=== PATIENT | male | born 1950 | race African-American/Black ===

== ENCOUNTER 2020-09-19 17:40 | Inpatient (IN) | payer OTHER, SELFPAY ==
[~2020-09-19 17:40] MED LIST: Iopamidol-370 76% 500 ML 1 ML ONE
--- NOTE | 2020-09-19 17:56 | CT ---
Head CT without contrast 09/19/2020: COMPARISON: 03/30/2009 HISTORY: Right leg dragging, expressive and receptive aphasia, stroke symptoms TECHNIQUE: Axial CT imaging at 5 mm intervals from vertex through skull base without contrast FINDINGS: The visualized paranasal sinuses and mastoid air cells are well-aerated. No displaced angela rial fracture. There is periventricular and deep white matter hypodensity adjacent to the atrium of the left lateral ventricle. There is mild encephalomalacia within the posterior lateral aspect of the temporal lobe on the left on axial image 15. Findings suggest encephalomalacia associated with prior infarction. No intracranial hemorrhage, midline shift, or mass effect. IMPRESSION: Findings suggesting prior left MCA infarction. No intracranial hemorrhage. Dr. Rene made aware at 5:54 PM 09/19/2020
[2020-09-19 18:23] LABS: #Eosinphils 0.1 thou/uL (0.0-0.7); #Lymphocytes 2.1 thou/uL (1.20-3.40); #Monocytes 0.6 thou/uL (0.11-0.59); #Neutrophils 7.5 thou/uL (1.40-6.50); %Basophils 0.3 % (0.0-1.0); %Eosinophils 0.5 % (0.0-10.0); %Lymphocytes 20.3 % (21.0-51.0); %Monocytes 6.1 % (0.0-10.0); %Neutrophils 72.8 % (42.0-75.0); Hemoglobin 16.1 g/dL (14.0-18.0); Mean Corpuscular HGB CONC 33.4 g/dL (32.0-36.0); Mean Corpuscular Hemoglobin 29.4 pg (27.0-31.0); Mean Platelet Volume 8.6 fL (7.4-10.4); Platelet Count 154 thou/uL (130-400); RBC Distribution Width 12.6 % (11.5-14.5); Red Blood Cell (RBC) Count 5.49 mill/uL (4.70-6.10); White Blood Cell (WBC) Count 10.4 thou/uL (4.8-10.8)
[2020-09-19 18:47] LABS: ALT (SGPT) 37 U/L (8-55); AST (SGOT) 26 U/L (5-34); Albumin 3.8 g/dL (3.4-4.8); Alkaline Phosphatase 37 U/L (40-110); Anion Gap 19 mmol/L (10-20); BUN (Urea Nitrogen) 29 mg/dL (8.4-25.7); Bilirubin, Total 0.3 mg/dL (0.2-1.2); Calc. Creatinine Clearance 0 mL/min (70-130); Calcium 8.6 mg/dL (7.8-10.44); Carbon Dioxide 18 mmol/L (23-31); Chloride 104 mmol/L (98-107); Glucose 209 mg/dL (80-115); Potassium 5.5 mmol/L (3.5-5.1); Protein, Total 6.8 g/dL (5.8-8.1); Sodium 135 mmol/L (136-145)
[2020-09-19 18:49] LABS: INR-International Normal Ratio 1.2; Prothrombin Time 15.3 sec (12.0-14.7)
[2020-09-19 18:50] LABS: PTT 22.4 sec (22.9-36.1)
--- NOTE | 2020-09-19 19:08 | RAD ---
CHEST ONE VIEW: 09/19/20 INDICATION: Level II stroke alert. COMPARISON: Prior exam dated 07/04/13. FINDINGS: The lungs are clear. Heart size is normal. There is a left reversed total shoulder replacement that i s new from the prior exam. There is mild degenerative change. IMPRESSION: No acute cardiopulmonary abnormality. POS: BH
--- NOTE | 2020-09-19 19:20 | PDOC.HHP ---
Hospitalist HPI - History of Present Illness CVA History of Present Illness: PCP: GUNNAR The patient is a 70-year-old male with a past medical history significant for CVA (2009), atrial fibrillation (on Pradaxa), HTN, DM 2, HLD and Alzheimer's dementia that presents to the emergency department via EMS for the above complaint. Per the patient's spouse, the patient was last seen normal at approximately noon this afternoon. After grocery shopping, she came home and noticed her was having difficulty helping her take the groceries into the home. She reported that he needed prompting and seemed confused. She also says the right side of his face looked "twisted". He had difficulty speaking. She noticed that he was dragging his right leg when ambulating. For these reason she called EMS. Upon arrival, the patient was noted to be A&O x1 with right lower extremity weakness and aphasia. Blood glucose 226 with irregular heart rate of 90 beats per minute. The patient was hypertensive with a blood pressure 136/100. Patient was taken to the hospital for further evaluation. The patient and his spouse deny any recent trauma or fall. Denies any recent fever or illness. Denies any recent change to his medications. Denies any complaints of chest pain, heart palpitations or lightheadedness. Denies any recent cough, wheezing or shortness of breath. Denies any abdominal pain, nausea, vomiting, diarrhea. Denies any dysuria or hematuria. ED Course: VITAL SIGNS Rias Sep 19, 2020 18:10 MORE Velasquez Kelsey BP: 142/82, Pulse: 96, Resp: 20 (Non-Labored), Temp: 98.6 (Oral), Pain: 0, O2 sat: 98 on (Room Air), Time: 09/19/2020 18:10. Medications: aspirin oral 325 mg Oral Ordered 19:12 09/19/2020 Hospitalist ROS - Review of Systems All other systems reviewed; all pertinent +/- noted in HPI/Subj - Medication Medications: Pradaxa [facility] Sep 19, 2020 18:17 MORE Velasquez Kelsey capsule : Strength - 150 mg : ORAL Patient Dose: 1 cap(s) once a day. QUEtiapine [facility] Sep 19, 2020 18:18 MORE Velasquez Kelsey tablet : Strength - 100 mg : ORAL Patient Dose: 0.5 tab(s) once a day. dilTIAZem oral [facility] Sep 19, 2020 18:18 MORE Velasquez Kelsey capsule,extended release 24 hr : Strength - 180 mg : ORAL Patient Dose: 1 cap(s) once a day. methocarbamol oral [facility] Sep 19, 2020 18:18 MORE Velasquez Kelsey tablet : Strength - 500 mg : ORAL Patient Dose: 2 tab(s) 3 times a day. ezetimibe [facility] Sep 19, 2020 18:19 MORE Velasquez Kelsey tablet : Strength - 10 mg : ORAL Patient Dose: 1 tab(s) once a day. donepezil [facility] Sep 19, 2020 18:19 MORE Velasquez Kelsey tablet : Strength - 10 mg : ORAL Patient Dose: 0.5 tab(s) once a day. glimepiride [facility] Sep 19, 2020 18:20 MORE Velasquez Kelsey tablet : Strength - 4 mg : ORAL Patient Dose: 2 tab(s) once a day. sildenafil [facility] Sep 19, 2020 18:21 MORE Velasquez Kelsey tablet : Strength - 100 mg : ORAL Patient Dose: 1 tab(s) As Needed. metoprolol tartrate oral [facility] Sep 19, 2020 18:22 MORE Velasquez Kelsey tablet : Strength - 50 mg : ORAL Patient Dose: 0.5 tab(s) 2 times a day. Allergies: Hospitalist History - Past Medical History Source: patient, family, RN notes reviewed Cardiac: reports: AFIB (On Pradaxa), HTN, Hyperlipidemia BUSINESS SERVICES REPRESENTATIVE: reports: CVA ((2009)), Dementia (Issues with short and long-term memory. Performs most ADLs, needs assistance with bathing.) Renal/: reports: Chronic renal insuff (CKD 3), Benign prostatic enlarg. Endocrine: reports: Diabetes (Type II [id number]) - Past Surgical History Other Surgical History: Poor historian. - Family History Family History: reports: cancer (Mother). denies: cerebrovascular accident - Social History Smoking Status: Never smoker Alcohol: reports: None Drugs: reports: none Living Situation: With Family Occupation: Does not work Activity level: uses cane/walker - Exam General Appearance: NAD, awake alert. negative: ill appearing Eye: PERRL, anicteric sclera ENT: normocephalic atraumatic, moist mucosa Neck: supple, symmetric Heart: no murmur, no gallops, no rubs, normal peripheral pulses, irregular Respiratory: CTAB, no wheezes, no rales, no ronchi, normal chest expansion, no tachypnea Gastrointestinal: soft, non-tender, non-distended, normal bowel sounds, no bruit, no guarding, no rigidity Extremities: no cyanosis, no edema Skin: no rashes Neurological - other findings: NIH 2, right nasolabial fold, expressive aphasia, LOC baseline per spouse Musculoskeletal: normal tone, normal strength Psychiatric: normal affect, oriented to person Psychiatric - other findings: Alert Hospitalist Results - Labs Result Diagrams: 09/19/20 17:52 09/19/20 18:08 Lab results: WBC 10.4 thou/uL (4.8-10.8) 09/19/20 17:52 Hgb 16.1 g/dL (14.0-18.0) 09/19/20 17:52 Hct 48.3 % (42.0-52.0) 09/19/20 17:52 MCV 88.0 fL (78.0-98.0) 09/19/20 17:52 Plt Count 154 thou/uL (130-400) 09/19/20 17:52 Neutrophils % 72.8 % (42.0-75.0) 09/19/20 17:52 Sodium 135 mmol/L (136-145) L 09/19/20 18:08 Potassium 5.5 mmol/L (3.5-5.1) H 09/19/20 18:08 Chloride 104 mmol/L (98-107) 09/19/20 18:08 Carbon Dioxide 18 mmol/L (23-31) L 09/19/20 18:08 BUN 29 mg/dL (8.4-25.7) H 09/19/20 18:08 Creatinine 1.78 mg/dL (0.7-1.3) H 09/19/20 18:08 Glucose 209 mg/dL (80-115) H 09/19/20 18:08 Calcium 8.6 mg/dL (7.8-10.44) 09/19/20 18:08 Total Bilirubin 0.3 mg/dL (0.2-1.2) 09/19/20 18:08 AST 26 U/L (5-34) 09/19/20 18:08 ALT 37 U/L (8-55) 09/19/20 18:08 Alkaline Phosphatase 37 U/L (40-110) L 09/19/20 18:08 Serum Total Protein 6.8 g/dL (5.8-8.1) 09/19/20 18:08 Albumin 3.8 g/dL (3.4-4.8) 09/19/20 18:08 - EKG Interpretation EKG: Atrial fibrillation, rate controlled. - Radiology Interpretation CT scan - head Status: report reviewed by me Additional Comment: IMPRESSION: Findings suggesting prior left MCA infarction. No intracranial hemorrhage. Other Status: report reviewed by me Additional Comment: CTA head and neck: IMPRESSION: Occlusion of a left M2 branch within the sylvian fissure. Chest x-ray Status: report reviewed by me Additional Comment: No acute process. Hospitalist H&P A/P - Problem (1) CVA (cerebral vascular accident) Code(s): I63.9 - CEREBRAL INFARCTION, UNSPECIFIED Status: Acute (2) Hyperkalemia Code(s): E87.5 - HYPERKALEMIA Status: Acute (3) Atrial fibrillation Code(s): I48.91 - UNSPECIFIED ATRIAL FIBRILLATION Status: Acute (4) DM2 (diabetes mellitus, type 2) Status: Chronic (5) HTN (hypertension) Code(s): I10 - ESSENTIAL (PRIMARY) HYPERTENSION Status: Chronic (6) HLD (hyperlipidemia) Code(s): E78.5 - HYPERLIPIDEMIA, UNSPECIFIED Status: Chronic (7) Alzheimer's dementia Code(s): G30.9 - ALZHEIMER'S DISEASE, UNSPECIFIED; F02.80 - DEMENTIA IN OTH DISEASES CLASSD ELSWHR W/O BEHAVRL DISTURB Status: Chronic (8) CKD (chronic kidney disease), stage III Code(s): N18.30 - CHRONIC KIDNEY DISEASE, STAGE 3 UNSPECIFIED Status: Chronic (9) BPH (benign prostatic hyperplasia) Code(s): N40.0 - BENIGN PROSTATIC HYPERPLASIA WITHOUT LOWER URINRY TRACT SYMP Status: Chronic - Plan Plan: 70/M with PMH CVA, A. fib, HTN, DM 2, HLD presents for right facial droop, aphasia and right lower extremity weakness. Admit to stroke unit, inpatient status. Expected length of stay less than 2 midnights. Presented tachycardic, NL BP, RR, SPO2, afebrile. NIH 2. EKG atrial fibrillation rate controlled. CT/CTA positive for left CVA. Potassium 5.5, BUN 29, creatinine 1.78 Glucose 209 #CVA Presented NIH 2, not TPA candidate. Order MRI, echocardiogram. Consult stroke team and neurology. Check FLP, TSH, mag level. Continue baby aspirin. Restart home dose Pradaxa. Permissive hypertension. Neurochecks. #Hyperkalemia Mild. Presented K5.5. Check mag level. Recheck in a.m. #Atrial fibrillation Chronic, rate controlled. Takes metoprolol, Cardizem, Pradaxa at home. Restart metoprolol, Cardizem Pradaxa. #DM2 Presented BG 209 Takes glimepiride at home. Hold glimepiride Start moderate ISS. Accu-Cheks AC at bedtime. Check hemoglobin A1c. #HTN Presented hypertensive. Takes metoprolol and Cardizem at home. Restart home dose metoprolol and Cardizem as blood pressure permits. #HLD Check FLP. Start high intensity statin. #Alzheimer's dementia Difficulty short and long-term memory. Lives with spouse. Needs assistance with bathing. Patient able to perform most ADLs. Takes donepezil at home. Restart donepezil #CKD 3 Presented BUN 29, creatinine 1.78, GFR 38. No comparison for baseline. Recheck BMP in a.m. #BPH Takes sildenafil at home. Restart sildenafil. SCDs for DVT prophylaxis. No pharmacological DVT prophylaxis. Pepcid for GI prophylaxis. Full code. Contact is his spouse Yazmin at [phone]. Discussed the case with Dr. Causey.
[2020-09-19] MEDS ORDERED: Labetalol HCl 100 MG/20 ML VIAL SLOW IVP PRN (19:46)
[2020-09-19] MEDS ORDERED: hydrALAZINE 20 MG/ML VIAL SLOW IVP PRN (19:46)
[2020-09-19] MEDS ORDERED: Aspirin 325 MG TAB ONE (19:47)
[2020-09-19] MEDS ORDERED: Ondansetron ODT 4 MG TAB PO PRN (19:48)
[2020-09-19] MEDS ORDERED: Ondansetron PF 4 MG/2 ML Vial IVP PRN (19:48)
[2020-09-19] MEDS ORDERED: Acetaminophen 325 MG TAB PO PRN (19:48)
[2020-09-19] MEDS ORDERED: Dextrose 50% Abboject 50 ML SYRINGE SLOW IVP PRN (19:52)
[2020-09-19] MEDS ORDERED: Dextrose 5% in Water 1,000 ML IV PRN (19:52)
[2020-09-19 21:47] VITALS: BMI 23.2
[2020-09-19] MEDS: Atorvastatin Calcium 40 MG TAB PO SCH (21:56)
[2020-09-19] MEDS: HumaLOG 300 UNITS/3 ML VIAL SC PRN (22:04)
[2020-09-20 05:04] LABS: #Eosinphils 0.1 thou/uL (0.0-0.7); #Lymphocytes 2.1 thou/uL (1.20-3.40); #Monocytes 0.5 thou/uL (0.11-0.59); #Neutrophils 6.5 thou/uL (1.40-6.50); %Eosinophils 0.9 % (0.0-10.0); %Lymphocytes 23.4 % (21.0-51.0); %Monocytes 5.1 % (0.0-10.0); %Neutrophils 70.6 % (42.0-75.0); Mean Corpuscular HGB CONC 33.3 g/dL (32.0-36.0); Mean Corpuscular Hemoglobin 28.4 pg (27.0-31.0); Mean Corpuscular Volume 85.4 fL (78.0-98.0); Mean Platelet Volume 8.1 fL (7.4-10.4); Platelet Count 159 thou/uL (130-400); RBC Distribution Width 12.6 % (11.5-14.5); Red Blood Cell (RBC) Count 5.28 mill/uL (4.70-6.10); White Blood Cell (WBC) Count 9.2 thou/uL (4.8-10.8)
[2020-09-20 05:15] LABS: Hemoglobin A1c 8.9 % (4.0-6.0)
[2020-09-20 05:21] LABS: Anion Gap 13 mmol/L (10-20); BUN (Urea Nitrogen) 20 mg/dL (8.4-25.7); Calc. Creatinine Clearance 63 mL/min (70-130); Calcium 8.3 mg/dL (7.8-10.44); Carbon Dioxide 21 mmol/L (23-31); Cardiac Risk 2.1 (Less than 4.5); Chloride 105 mmol/L (98-107); Cholesterol 103 mg/dl (< 200 Desired); Glucose 266 mg/dL (80-115); HDL Cholesterol 48 mg/dL (>60 Neg Risk); LDL Cholesterol, Calculated 46 mg/dL; Magnesium 2.1 mg/dL (1.6-2.6); Potassium 4.5 mmol/L (3.5-5.1); Sodium 134 mmol/L (136-145); Triglycerides 43 mg/dL (Less than 150)
[2020-09-20] MEDS: HumaLOG 300 UNITS/3 ML VIAL SC PRN ×4 (05:43→20:50)
[2020-09-20] MEDS ORDERED: Methocarbamol 500 MG TAB PO PRN (08:38)
[2020-09-20] MEDS ORDERED: SILDENAFIL CITRATE 100 MG PO PRN (08:40)
[2020-09-20] MEDS ORDERED: Sildenafil Citrate 20 MG TAB PO SCH (09:00)
[2020-09-20] MEDS ORDERED: Metoprolol Tartrate 50 MG TAB PO SCH (09:00)
[2020-09-20] MEDS ORDERED: Donepezil HCl 10 MG TAB PO SCH (09:00)
[2020-09-20] MEDS ORDERED: MAGNESIUM OXIDE 400 MG PO SCH (09:00)
[2020-09-20] MEDS ORDERED: Cholecalciferol (Vitamin D3) 400 UNITS TAB PO SCH (09:00)
[2020-09-20] MEDS ORDERED: Sildenafil Citrate 20 MG TAB PO PRN (09:00)
[2020-09-20] MEDS ORDERED: DILTIAZEM HCL 180 MG PO SCH (09:00)
[2020-09-20] MEDS: Aspirin 81 mg Enteric Coated Tablet PO SCH (09:38)
[2020-09-20] MEDS: Magnesium Oxide 400 MG TAB PO SCH (09:38)
[2020-09-20] MEDS: Famotidine 20 MG TAB PO SCH (09:38)
[2020-09-20] MEDS: Donepezil HCl 5 MG TAB PO SCH (09:38)
[2020-09-20] MEDS: Metoprolol Tartrate 25 MG TAB PO SCH ×2 (09:39→20:39)
[2020-09-20] MEDS: Cholecalciferol (Vitamin D3) 400 UNITS TAB PO SCH (09:39)
[2020-09-20] MEDS: Ezetimibe 10 MG TAB PO SCH (09:39)
--- NOTE | 2020-09-20 12:01 | CON ---
DATE OF CONSULTATION: 09/20/2020 CONSULTING PHYSICIAN: Hospitalist Service. IMPRESSION: 1. Left middle cerebral artery stroke with mild expressive aphasia. 2. Atrial fibrillation with ongoing Pradaxa treatment. PLAN: I agree with baby aspirin in addition. HISTORY OF PRESENT ILLNESS: Mr. Andrew is a 70-year-old male with a past history of atrial fibrillation, stroke, and some dementia. He presented with a change in his ability to speak. His CT angiogram showed a distal occlusion in the left MCA territory. His blood pressure is 136/100. He was without any other complaints. He does not report any headache, nausea, vomiting, dizziness, chest pain, or shortness of breath. PAST MEDICAL HISTORY: BPH, diabetes. SOCIAL HISTORY: No tobacco or alcohol use. FAMILY HISTORY: Positive for cancer and stroke. REVIEW OF SYSTEMS: A 10-system review of systems is otherwise negative. PHYSICAL EXAMINATION: GENERAL: He is a well-nourished elderly gentleman, lying in bed, in no distress. VITAL SIGNS: Blood pressure 135/102, pulse 100, respirations 20, and temperature 98.3. HEENT: Pupils equal and reactive. Conjunctivae clear. Oropharynx clear. NECK: Supple. No lymphadenopathy. ABDOMEN: Soft and nontender. SKIN: Clear. EXTREMITIES: No cyanosis or edema. NEUROLOGIC: He was alert and appropriate. He follows commands appropriately. He had word-finding difficulty. There was no facial asymmetry appreciated. 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 He had good antigravity strength in both legs. Sensation was grossly intact. Plantar response was upgoing on the right and downgoing on the left. Gait was not tested. SUMMARY: This is a 70-year-old man with a history of atrial fibrillation with prior anticoagulation. He presented with a probable thrombosis. I agree with the addition of aspirin, appears to be improving based on reports. He could be discharged at your discretion. Job ID: [id number]
--- NOTE | 2020-09-20 13:42 | MRI ---
MRI BRAIN WITHOUT CONTRAST: HISTORY: Right leg weakness and dragging, expressive and receptive aphasia. CORRELATION: CT scan from 09/19/2020. FINDINGS: There is restricted diffusion in the left posterior MCA territory.. There are foci of T2 prolongation in the periventricular white matter, consistent with chronic small vessel ischemic disease. The ventricular size is appropriate and the basilar cisterns are patent. No evidence of hemorrhage, midline shift or abnormal extra-axial fluid collections is seen. The visualized paranasal sinuses and mastoid air cells are well-aerated. IMPRESSION: Acute left posterior MCA infarction
--- NOTE | 2020-09-20 16:28 | CON ---
DATE OF CONSULTATION: REASON FOR CONSULTATION: Atrial fibrillation, recent CVA. PRIMARY TESTING MACHINE OPERATOR: Maxwell Martins. HISTORY OF PRESENT ILLNESS: Mr. Andrew is a pleasant 70-year-old gentleman, who recently had slurred speech. He has had some recovery, although still noted. He does have a history of atrial fibrillation over last 5 to 6 years. He states he has had cardioversion performed in the past that failed. He initially was on Coumadin and is now on Pradaxa. He has been on Pradaxa over the last 6 months. He states he has been diligent about taking his Pradaxa on a daily basis twice a day. He does not complain of palpitations, heart fluttering, chest pain, or other associated symptoms. His most recent echo did suggest normal LVEF. MRI suggested acute left posterior MCA infarction. PAST MEDICAL HISTORY: Diabetes mellitus, atrial fibrillation, BPH. FAMILY HISTORY: Negative for CAD. SOCIAL HISTORY: No current tobacco or alcohol use. HOME MEDICATIONS: Include; 1. Zetia 10 daily. 2. Vitamin D3. 3. Seroquel 50 mg at bedtime. 4. Pradaxa 150 b.i.d. 5. Cardizem 180 daily. 6. Viagra 100 daily. 7. Magnesium. 8. Metoprolol 25 b.i.d. 9. Amaryl 8 mg q.a.m. 10. Aricept 5 mg daily. REVIEW OF SYSTEMS: Ten-point review of systems is reviewed and as above, otherwise negative. OBJECTIVE: GENERAL: Patient is a pleasant male, who is in no acute distress. The patient appears their stated age. VITAL SIGNS: Blood pressure 106/71, pulse 77, temperature 98.2. NEUROLOGIC: The patient is alert and oriented x3 with no focal neurologic deficits. HEENT: Sclerae without icterus. Mouth has moist mucous membranes with normal pallor. NECK: No JVD. Carotid upstroke brisk. No bruits bilaterally. LUNGS: Clear to auscultation with unlabored respirations. BACK: No scoliosis or kyphosis. CARDIAC: Irregularly irregular. ABDOMEN: Soft, nontender, nondistended. No peritoneal signs present. No hepatosplenomegaly. No abnormal striae. EXTREMITIES: 2+ femoral and 2+ dorsalis pedis pulses. No cyanosis, clubbing, or edema. SKIN: No gross abnormalities. PERTINENT LABORATORY DATA: Hemoglobin 15, hematocrit 45. Creatinine 1.12, glucose 266. IMPRESSION: 1. Atrial fibrillation, on anticoagulation therapy. 2. Recent stroke. RECOMMENDATIONS: Mr. Andrew's etiology to cerebrovascular accident maybe multiple. He states he has been compliant, which makes that less likely. He may also be a Pradaxa failure, which does happen close to 1% of the time. I discussed changing to Xarelto or Eliquis. he is not eligible. Therefore, we would agree with adding aspirin to Pradaxa. Heart rate appears stable on current medical regime. We will follow up in a.m. and if stable, we will sign off. He would like to follow up with us as an outpatient. Job ID: [id number]
[2020-09-20] MEDS ORDERED: Dabigatran 150 mg Capsule PO SCH ×2 (17:00→21:00)
--- NOTE | 2020-09-20 20:22 | PDOC.HOSPP ---
- Subjective Encounter Date: 09/20/20 Encounter Time: 19:00 Subjective: Patient seen and examined for acute CVA. Right-sided weakness and speech gradually improving. Denies any double vision, blurring of vision or new deficit. No chest pain or palpitations reported. - Objective Vital Signs & Weight: Vital Signs (12 hours) Temp Pulse Pulse Pulse Resp BP BP 09/20/20 15:22 98.5 F 94 18 09/20/20 11:09 52 L 96 118/90 106/71 09/20/20 11:05 98.2 F 77 16 09/20/20 09:38 09/20/20 09:03 100 135/102 H BP Pulse Ox 09/20/20 15:22 128/83 99 09/20/20 11:09 09/20/20 11:05 118/90 100 09/20/20 09:38 100 09/20/20 09:03 Weight Admit Weight 157 lb 3.2 oz Weight 157 lb 3.2 oz I&O: 09/19/20 09/20/20 09/21/20 06:59 06:59 06:59 Intake Total 500 2580 Balance 500 2580 Result Diagrams: 09/20/20 04:39 09/20/20 04:39 Additional Labs: Accuchecks 09/20/20 09/20/20 09/20/20 16:16 10:40 05:22 POC Glucose 333 H 217 H 215 H 09/19/20 21:59 POC Glucose 272 H Radiology Reviewed by me: Yes (CT angiogram of the brain reviewed) EKG Reviewed by me: Yes (Atrial fibrillation on telemetry) Hospitalist ROS - Review of Systems Cardiovascular: denies: chest pain, palpitations, orthopnea, paroxysmal noc. dyspnea, edema, light headedness, other Gastrointestinal: denies: nausea, vomiting, abdominal pain, diarrhea, constipation, melena, hematochezia, other - Medication Medications: Active Medications Generic Name Dose Route Start Last Admin Trade Name Freq PRN Reason Stop Dose Admin Aspirin 81 mg 09/20/20 09:00 09/20/20 09:38 Aspirin 81 Mg Enteric Coated Tablet PO 81 mg DAILY DONYA Administration Atorvastatin Calcium 40 mg 09/19/20 21:00 09/19/20 21:56 Atorvastatin Calcium 40 Mg Tab PO 40 mg HS DONYA Administration Cholecalciferol 800 units 09/20/20 09:00 09/20/20 09:39 Cholecalciferol (Vitamin D3) 400 Units Tab PO 800 units DAILY DONYA Administration Diltiazem HCl 180 mg 09/20/20 09:00 09/20/20 09:38 Diltiazem Hcl Cd 180 Mg Capsule PO 180 mg DAILY DONYA Administration Donepezil HCl 5 mg 09/20/20 09:00 09/20/20 09:38 Donepezil Hcl 5 Mg Tab PO 5 mg DAILY DONYA Administration Ezetimibe 10 mg 09/20/20 09:00 09/20/20 09:39 Ezetimibe 10 Mg Tab PO 10 mg DAILY DONYA Administration Famotidine 20 mg 09/20/20 09:00 09/20/20 09:38 Famotidine 20 Mg Tab PO 20 mg 0900 DONYA Administration Insulin Human Lispro 0 units 09/19/20 19:52 09/20/20 17:27 Humalog 300 Units/3 Ml Vial SC 8 unit .MODERATE SLIDING SC PRN Administration Moderate Correctional Scale Insulin Human Lispro 0 units 09/19/20 19:52 09/19/20 22:04 Humalog 300 Units/3 Ml Vial SC 3 unit .BEDTIME SLIDING SC PRN Administration Bedtime Correctional Scale Magnesium Oxide 400 mg 09/20/20 09:00 09/20/20 09:38 Magnesium Oxide 400 Mg Tab PO 400 mg DAILY DONYA Administration Metoprolol Tartrate 25 mg 09/20/20 09:00 09/20/20 09:39 Metoprolol Tartrate 25 Mg Tab PO 25 mg BID DONYA Administration - Exam General Appearance: NAD Neck: supple, no JVD Heart: no gallops, no rubs, normal peripheral pulses, irregular Respiratory: no wheezes, no rales, no ronchi, normal chest expansion Gastrointestinal: soft, non-tender, non-distended, normal bowel sounds Extremities: no cyanosis, no clubbing, no edema Neurological: no new deficit, speech deficit Psychiatric: normal affect, A&O x 3 Hosp A/P - Plan Acute left posterior MCA CVAsuspected embolic Chronic atrial fibrillation on Pradaxa Speech deficit due to above Diabetes mellitus type 2 Benign prostatic hypertrophy CKD stage II Hyponatremia Hyperkalemiaresolved Dementia Hyperlipidemia Plan: Case discussed with neurology. Neurology recommended addition of aspirin to home dose of Pradaxa. Continue Cardizem, statins with other medications as above. Physical therapy/Occupational Therapy/speech therapy. Consult caser in for discharge planning. Cardiology/neurology input appreciated.
[2020-09-20] MEDS: Atorvastatin Calcium 40 MG TAB PO SCH (20:39)
[2020-09-21] MEDS: HumaLOG 300 UNITS/3 ML VIAL SC PRN ×3 (05:54→16:42)
[2020-09-21] MEDS: Dabigatran 150 mg Capsule PO SCH ×2 (08:54→20:15)
[2020-09-21] MEDS: Cholecalciferol (Vitamin D3) 400 UNITS TAB PO SCH (08:54)
[2020-09-21] MEDS: Glimepiride 4 MG TAB PO SCH (08:54)
[2020-09-21] MEDS: Aspirin 81 mg Enteric Coated Tablet PO SCH (08:54)
[2020-09-21] MEDS: Metoprolol Tartrate 25 MG TAB PO SCH ×2 (08:55→20:15)
[2020-09-21] MEDS: Famotidine 20 MG TAB PO SCH (08:55)
[2020-09-21] MEDS: Donepezil HCl 5 MG TAB PO SCH (08:55)
[2020-09-21] MEDS: Ezetimibe 10 MG TAB PO SCH (08:55)
[2020-09-21] MEDS: Magnesium Oxide 400 MG TAB PO SCH (08:55)
--- NOTE | 2020-09-21 12:56 | PDOC.CPN ---
- Subjective Date: 09/21/20 Time: 13:10 Interval history: No overnight events. - Review of Systems General: denies: fever/chills, weight/appetite/sleep changes, night sweats, fatigue Respiratory: denies: cough, congestion, shortness of breath, exercise intolerance Cardiovascular: denies: chest pain, palpitation, edema, paroxysmal nocturnal dyspnea, orthopnea Gastrointestinal: denies: nausea, vomiting, diarrhea, constipation, abd pain, GI bleeding Musculoskeletal: denies: pain, tenderness, stiffness, swelling, arthritis/arthralgias Neurological: denies: numbness, syncope, seizure, weakness - Objective Allergies/Adverse Reactions: Allergies Allergy/AdvReac Type Severity Reaction Status Date / Time No Known Drug Allergies Allergy Verified 09/19/20 21:43 Visit Medications: Current Medications Acetaminophen (Acetaminophen 325 Mg Tab) 650 mg PO Q4H PRN PRN Reason: Headache/Fever/Mild Pain (1-3) Last Admin: 09/20/20 20:40 Dose: 650 mg Documented by: Aspirin (Aspirin 81 Mg Enteric Coated Tablet) 81 mg PO DAILY [facility] Last Admin: 09/21/20 08:54 Dose: 81 mg Documented by: Atorvastatin Calcium (Atorvastatin Calcium 40 Mg Tab) 40 mg PO HS [facility] Last Admin: 09/20/20 20:39 Dose: 40 mg Documented by: Cholecalciferol (Cholecalciferol (Vitamin D3) 400 Units Tab) 800 units PO DAILY [facility] Last Admin: 09/21/20 08:54 Dose: 800 units Documented by: Dabigatran (Dabigatran 150 Mg Capsule) 150 mg PO BID [facility] Last Admin: 09/21/20 08:54 Dose: 150 mg Documented by: Dextrose/Water (Dextrose 50% Abboject 50 Ml Syringe) 25 gm SLOW IVP PRN PRN PRN Reason: Hypoglycemia Diltiazem HCl (Diltiazem Hcl Cd 180 Mg Capsule) 180 mg PO DAILY [facility] Last Admin: 09/21/20 08:54 Dose: 180 mg Documented by: Donepezil HCl (Donepezil Hcl 5 Mg Tab) 5 mg PO DAILY [facility] Last Admin: 09/21/20 08:55 Dose: 5 mg Documented by: Ezetimibe (Ezetimibe 10 Mg Tab) 10 mg PO DAILY [facility] Last Admin: 09/21/20 08:55 Dose: 10 mg Documented by: Famotidine (Famotidine 20 Mg Tab) 20 mg PO 0900 [facility] Last Admin: 09/21/20 08:55 Dose: 20 mg Documented by: Glimepiride (Glimepiride 4 Mg Tab) 8 mg PO QAM-WM [facility] Last Admin: 09/21/20 08:54 Dose: 8 mg Documented by: Glucagon (Glucagon 1 Mg/Ml Vial) 1 mg IM PRN PRN PRN Reason: Hypoglycemia Hydralazine HCl (Hydralazine 20 Mg/Ml Vial) 10 mg SLOW IVP Q4H PRN PRN Reason: BP > 220/110 Dextrose/Water (D5w) 1,000 mls @ 0 mls/hr IV .Q0M PRN PRN Reason: Hypoglycemia Insulin Human Lispro (Humalog 300 Units/3 Ml Vial) 0 units SC .MODERATE SLIDING SC PRN PRN Reason: Moderate Correctional Scale Last Admin: 09/21/20 11:08 Dose: 4 unit Documented by: Insulin Human Lispro (Humalog 300 Units/3 Ml Vial) 0 units SC .BEDTIME SLIDING SC PRN PRN Reason: Bedtime Correctional Scale Last Admin: 09/20/20 20:50 Dose: 3 unit Documented by: Labetalol HCl (Labetalol Hcl 100 Mg/20 Ml Vial) 20 mg SLOW IVP Q1H PRN PRN Reason: BP > 220/110 Magnesium Oxide (Magnesium Oxide 400 Mg Tab) 400 mg PO DAILY [facility] Last Admin: 09/21/20 08:55 Dose: 400 mg Documented by: Methocarbamol (Methocarbamol 500 Mg Tab) 1,000 mg PO TID PRN PRN Reason: Muscle Spasm Metoprolol Tartrate (Metoprolol Tartrate 25 Mg Tab) 25 mg PO BID [facility] Last Admin: 09/21/20 08:55 Dose: 25 mg Documented by: Ondansetron HCl (Ondansetron Pf 4 Mg/2 Ml Vial) 4 mg IVP Q6H PRN PRN Reason: Nausea/Vomiting Ondansetron HCl (Ondansetron Odt 4 Mg Tab) 4 mg PO Q6H PRN PRN Reason: Nausea/Vomiting Quetiapine Fumarate (Quetiapine Fumarate 100 Mg Tab) 50 mg PO HS [facility] Last Admin: 09/20/20 20:39 Dose: 50 mg Documented by: Sodium Chloride (Flush - Normal Saline 10 Ml Syringe) 10 ml IVF PRN PRN PRN Reason: Saline Flush Vital Signs & Weight: Vital Signs Temp Pulse Resp BP Pulse Ox 09/21/20 11:31 98.3 F 60 16 128/62 100 09/21/20 07:40 100 09/21/20 07:23 98.0 F 92 16 128/80 99 09/21/20 03:43 98.1 F 55 L 20 118/86 100 Admit Weight 157 lb 3.2 oz Weight 156 lb 3.2 oz - Physical Exam General: alert & oriented x3, appears well, no apparent distress HEENT: mucus membranes moist Neck: supple neck Cardiac: other (IRR IRR) Lungs: clear to auscultation Abdomen: soft, non-tender - Labs Result Diagrams: 09/20/20 04:39 09/20/20 04:39 Troponin/CKMB Troponin I 0.016 ng/mL (< 0.028) 09/19/20 18:08 - Assessment/Plan Assessment/Plan: 1. AF 2. CVA Continue Pradaxa and add ASA. Rate-controlled. Cleared for discharge from my perspective. RG 09/21 Pt seen and examined. Agree with the above Pt with decrease EF noted over the last 2 m Discussed ango with pt R/B discussed Plan on angio on Wednesday Continue dieresis and BP management
--- NOTE | 2020-09-21 14:50 | EKG ---
Test Reason : Blood Pressure : / mmHG Vent. Rate : 099 BPM Atrial Rate : 100 BPM P-R Int : 000 ms QRS Dur : 086 ms QT Int : 350 ms P-R-T Axes : 000 -32 062 degrees QTc Int : 449 ms Atrial fibrillation Left axis deviation Moderate voltage criteria for LVH, may be normal variant Nonspecific T wave abnormality , probably digitalis effect Abnormal ECG Confirmed by KRYS HOROWITZ M.D. ([id number]), research editor PIPO BEARD ([id number]) on 09/21/2020 2:50:22 PM Referred By: Confirmed By:KRYS HOROWITZ M.D.
--- NOTE | 2020-09-21 18:01 | PDOC.HOSPP ---
- Subjective Encounter Date: 09/21/20 Encounter Time: 14:00 Subjective: Patient seen and examined for acute CVA. Denies any focal deficit. Right-sided weakness and speech improving. Denies any new focal deficit. - Objective Vital Signs & Weight: Vital Signs (12 hours) Temp Pulse Resp BP Pulse Ox 09/21/20 15:20 98.2 F 91 18 117/92 H 98 09/21/20 11:31 98.3 F 60 16 128/62 100 09/21/20 07:40 100 09/21/20 07:23 98.0 F 92 16 128/80 99 Weight Admit Weight 157 lb 3.2 oz Weight 156 lb 3.2 oz I&O: 09/20/20 09/21/20 09/22/20 06:59 06:59 06:59 Intake Total 500 2640 600 Balance 500 2640 600 Result Diagrams: 09/20/20 04:39 09/20/20 04:39 Additional Labs: Accuchecks 09/21/20 09/21/20 09/20/20 16:33 11:02 20:48 POC Glucose 227 H 220 H 297 H Abnormal Lab Results - Last 48 hrs 09/19/20 17:52: Lymphocytes % 20.3 L, Neutrophils # 7.5 H, Monocytes # 0.6 H 09/19/20 18:08: Sodium 135 L, Potassium 5.5 H, Carbon Dioxide 18 L, BUN 29 H, Creatinine 1.78 H, Alkaline Phosphatase 37 L 09/19/20 18:20: PT 15.3 H, APTT 22.4 L 09/20/20 04:39: Sodium 134 L, Carbon Dioxide 21 L 09/20/20 04:39: Hemoglobin A1c 8.9 H EKG Reviewed by me: Yes (Atrial fibrillation on telemetry) Hospitalist ROS - Review of Systems Respiratory: denies: cough, dry, shortness of breath, hemoptysis, SOB with excertion, pleuritic pain, sputum, wheezing, other Cardiovascular: denies: chest pain, palpitations, orthopnea, paroxysmal noc. dyspnea, edema, light headedness, other - Medication Medications: Active Medications Generic Name Dose Route Start Last Admin Trade Name Freq PRN Reason Stop Dose Admin Acetaminophen 650 mg 09/19/20 19:48 09/20/20 20:40 Acetaminophen 325 Mg Tab PO 650 mg Q4H PRN Administration Headache/Fever/Mild Pain (1-3) Aspirin 81 mg 09/20/20 09:00 09/21/20 08:54 Aspirin 81 Mg Enteric Coated Tablet PO 81 mg DAILY DONYA Administration Atorvastatin Calcium 40 mg 09/19/20 21:00 09/20/20 20:39 Atorvastatin Calcium 40 Mg Tab PO 40 mg HS DONYA Administration Cholecalciferol 800 units 09/20/20 09:00 09/21/20 08:54 Cholecalciferol (Vitamin D3) 400 Units Tab PO 800 units DAILY DONYA Administration Dabigatran 150 mg 09/21/20 09:00 09/21/20 08:54 Dabigatran 150 Mg Capsule PO 150 mg BID DONYA Administration Diltiazem HCl 180 mg 09/20/20 09:00 09/21/20 08:54 Diltiazem Hcl Cd 180 Mg Capsule PO 180 mg DAILY DONYA Administration Donepezil HCl 5 mg 09/20/20 09:00 09/21/20 08:55 Donepezil Hcl 5 Mg Tab PO 5 mg DAILY DONYA Administration Ezetimibe 10 mg 09/20/20 09:00 09/21/20 08:55 Ezetimibe 10 Mg Tab PO 10 mg DAILY DONYA Administration Famotidine 20 mg 09/20/20 09:00 09/21/20 08:55 Famotidine 20 Mg Tab PO 20 mg 0900 DONYA Administration Glimepiride 8 mg 09/21/20 08:00 09/21/20 08:54 Glimepiride 4 Mg Tab PO 8 mg QAM-WM DONYA Administration Insulin Human Lispro 0 units 09/19/20 19:52 09/21/20 16:42 Humalog 300 Units/3 Ml Vial SC 4 unit .MODERATE SLIDING SC PRN Administration Moderate Correctional Scale Insulin Human Lispro 0 units 09/19/20 19:52 09/20/20 20:50 Humalog 300 Units/3 Ml Vial SC 3 unit .BEDTIME SLIDING SC PRN Administration Bedtime Correctional Scale Magnesium Oxide 400 mg 09/20/20 09:00 09/21/20 08:55 Magnesium Oxide 400 Mg Tab PO 400 mg DAILY DONYA Administration Metoprolol Tartrate 25 mg 09/20/20 09:00 09/21/20 08:55 Metoprolol Tartrate 25 Mg Tab PO 25 mg BID DONYA Administration Quetiapine Fumarate 50 mg 09/20/20 21:00 09/20/20 20:39 Quetiapine Fumarate 100 Mg Tab PO 50 mg HS DONYA Administration - Exam General Appearance: NAD Heart: no gallops, irregular Respiratory: no wheezes, no ronchi Gastrointestinal: soft, non-distended Extremities: no cyanosis Neurological: no new deficit, speech deficit Psychiatric: A&O x 3 Hosp A/P - Plan Acute left posterior MCA CVAsuspected embolic Chronic systolic heart failure ejection fraction 35% range Chronic atrial fibrillation on Pradaxa Speech deficit due to above Diabetes mellitus type 2uncontrolled Benign prostatic hypertrophy CKD stage II Hyponatremia Hyperkalemiaresolved Dementia Hyperlipidemia History of CVA Plan: Case discussed with cardiology. Continue aspirin with Pradaxa per neurology. Continue Cardizem, metoprolol. Add NPH due to uncontrolled blood sugar with glimepiride. Continue other medications as above. Consult upper caser for home health care set up. Plan discussed with the family at the bedside
[2020-09-21] MEDS ORDERED: NPH, Human Insulin Isophane 300 UNIT/3 ML VIAL SC SCH (18:15)
[2020-09-21] MEDS: Atorvastatin Calcium 40 MG TAB PO SCH (20:14)
[2020-09-21] MEDS: Senokot S 8.6-50 MG TAB PO SCH (20:14)
[2020-09-22 05:21] LABS: Anion Gap 14 mmol/L (10-20); BUN (Urea Nitrogen) 16 mg/dL (8.4-25.7); Calc. Creatinine Clearance 57 mL/min (70-130); Calcium 8.5 mg/dL (7.8-10.44); Carbon Dioxide 21 mmol/L (23-31); Chloride 104 mmol/L (98-107); Glucose 246 mg/dL (80-115); Magnesium 1.9 mg/dL (1.6-2.6); Potassium 4.2 mmol/L (3.5-5.1); Sodium 135 mmol/L (136-145)
[2020-09-22 05:34] LABS: SARS-CoV-2 MS2 Positive; SARS-CoV-2 N Gene Negative; SARS-CoV-2 S Gene Negative; SARS-CoV-2 by NAA Not Detected (NotDetected); SARS-CoV-2 orf1ab Negative
[2020-09-22] MEDS: HumaLOG 300 UNITS/3 ML VIAL SC PRN ×3 (06:39→23:32)
[2020-09-22] MEDS: Ezetimibe 10 MG TAB PO SCH (10:12)
[2020-09-22] MEDS: Cholecalciferol (Vitamin D3) 400 UNITS TAB PO SCH (10:12)
[2020-09-22] MEDS: Famotidine 20 MG TAB PO SCH (10:13)
[2020-09-22] MEDS: Donepezil HCl 5 MG TAB PO SCH (10:13)
[2020-09-22] MEDS: Metoprolol Tartrate 25 MG TAB PO SCH ×2 (10:13→21:09)
[2020-09-22] MEDS: Dabigatran 150 mg Capsule PO SCH ×2 (10:13→21:09)
[2020-09-22] MEDS: Glimepiride 4 MG TAB PO SCH (10:13)
[2020-09-22] MEDS: Magnesium Oxide 400 MG TAB PO SCH (10:13)
[2020-09-22] MEDS: Senokot S 8.6-50 MG TAB PO SCH ×2 (10:13→21:09)
[2020-09-22] MEDS: Aspirin 81 mg Enteric Coated Tablet PO SCH (10:13)
[2020-09-22] MEDS: NPH, Human Insulin Isophane 300 UNIT/3 ML VIAL SC SCH (10:14)
--- NOTE | 2020-09-22 12:37 | PDOC.CPN ---
- Subjective Date: 09/22/20 Time: 12:36 Interval history: Reviewed notes. No overnight events. - Review of Systems ROS unobtainable: due to mental status - Objective Allergies/Adverse Reactions: Allergies Allergy/AdvReac Type Severity Reaction Status Date / Time No Known Drug Allergies Allergy Verified 09/19/20 21:43 Visit Medications: Current Medications Acetaminophen (Acetaminophen 325 Mg Tab) 650 mg PO Q4H PRN PRN Reason: Headache/Fever/Mild Pain (1-3) Last Admin: 09/20/20 20:40 Dose: 650 mg Documented by: Aspirin (Aspirin 81 Mg Enteric Coated Tablet) 81 mg PO DAILY [facility] Last Admin: 09/22/20 10:13 Dose: 81 mg Documented by: Atorvastatin Calcium (Atorvastatin Calcium 40 Mg Tab) 40 mg PO HS [facility] Last Admin: 09/21/20 20:14 Dose: 40 mg Documented by: Cholecalciferol (Cholecalciferol (Vitamin D3) 400 Units Tab) 800 units PO DAILY [facility] Last Admin: 09/22/20 10:12 Dose: 800 units Documented by: Dabigatran (Dabigatran 150 Mg Capsule) 150 mg PO BID [facility] Last Admin: 09/22/20 10:13 Dose: 150 mg Documented by: Dextrose/Water (Dextrose 50% Abboject 50 Ml Syringe) 25 gm SLOW IVP PRN PRN PRN Reason: Hypoglycemia Diltiazem HCl (Diltiazem Hcl Cd 180 Mg Capsule) 180 mg PO DAILY [facility] Last Admin: 09/22/20 10:13 Dose: 180 mg Documented by: Donepezil HCl (Donepezil Hcl 5 Mg Tab) 5 mg PO DAILY [facility] Last Admin: 09/22/20 10:13 Dose: 5 mg Documented by: Ezetimibe (Ezetimibe 10 Mg Tab) 10 mg PO DAILY [facility] Last Admin: 09/22/20 10:12 Dose: 10 mg Documented by: Famotidine (Famotidine 20 Mg Tab) 20 mg PO 0900 [facility] Last Admin: 09/22/20 10:13 Dose: 20 mg Documented by: Glimepiride (Glimepiride 4 Mg Tab) 8 mg PO QAM-WM [facility] Last Admin: 09/22/20 10:13 Dose: 8 mg Documented by: Glucagon (Glucagon 1 Mg/Ml Vial) 1 mg IM PRN PRN PRN Reason: Hypoglycemia Hydralazine HCl (Hydralazine 20 Mg/Ml Vial) 10 mg SLOW IVP Q4H PRN PRN Reason: BP > 220/110 Dextrose/Water (D5w) 1,000 mls @ 0 mls/hr IV .Q0M PRN PRN Reason: Hypoglycemia Insulin Human Lispro (Humalog 300 Units/3 Ml Vial) 0 units SC .MODERATE SLIDING SC PRN PRN Reason: Moderate Correctional Scale Last Admin: 09/22/20 11:45 Dose: 4 unit Documented by: Insulin Human Lispro (Humalog 300 Units/3 Ml Vial) 0 units SC .BEDTIME SLIDING SC PRN PRN Reason: Bedtime Correctional Scale Last Admin: 09/20/20 20:50 Dose: 3 unit Documented by: Insulin Human NPH (Nph, Human Insulin Isophane 300 Unit/3 Ml Vial) 10 unit SC DAILY [facility] Last Admin: 09/22/20 10:14 Dose: 10 unit Documented by: Labetalol HCl (Labetalol Hcl 100 Mg/20 Ml Vial) 20 mg SLOW IVP Q1H PRN PRN Reason: BP > 220/110 Magnesium Oxide (Magnesium Oxide 400 Mg Tab) 400 mg PO DAILY [facility] Last Admin: 09/22/20 10:13 Dose: 400 mg Documented by: Methocarbamol (Methocarbamol 500 Mg Tab) 1,000 mg PO TID PRN PRN Reason: Muscle Spasm Metoprolol Tartrate (Metoprolol Tartrate 25 Mg Tab) 25 mg PO BID [facility] Last Admin: 09/22/20 10:13 Dose: 25 mg Documented by: Ondansetron HCl (Ondansetron Pf 4 Mg/2 Ml Vial) 4 mg IVP Q6H PRN PRN Reason: Nausea/Vomiting Ondansetron HCl (Ondansetron Odt 4 Mg Tab) 4 mg PO Q6H PRN PRN Reason: Nausea/Vomiting Quetiapine Fumarate (Quetiapine Fumarate 100 Mg Tab) 50 mg PO [facility] Last Admin: 09/21/20 20:14 Dose: 50 mg Documented by: Senna/Docusate Sodium (Senokot S 8.6-50 Mg Tab) 1 tab PO BID [facility] Last Admin: 09/22/20 10:13 Dose: Not Given Documented by: Sodium Chloride (Flush - Normal Saline 10 Ml Syringe) 10 ml IVF PRN PRN PRN Reason: Saline Flush Vital Signs & Weight: Vital Signs Temp Pulse Resp BP Pulse Ox 09/22/20 12:00 98.3 F 98 16 124/86 98 09/22/20 07:58 98 F 73 16 139/99 H 100 09/22/20 03:03 97.6 F 94 18 118/71 98 Admit Weight 157 lb 3.2 oz Weight 152 lb 6.4 oz - Physical Exam General: no apparent distress HEENT: mucus membranes moist Neck: supple neck Cardiac: other (IRR) Lungs: no wheezes, no rhonchi Abdomen: soft - Labs Result Diagrams: 09/20/20 04:39 09/22/20 04:26 Troponin/CKMB Troponin I 0.016 ng/mL (< 0.028) 09/19/20 18:08 - Assessment/Plan Assessment/Plan: 1. Persistent AF 2. CVA 3. 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 Continue bblocker. Change Cardizem to Dig. Add ARB as BP tolerates. Will discuss LifeVest with RG. Plan outpatient ischemic w/up in the future. Not candidate for angio with recent CVA.
[2020-09-22 13:49] LABS: Digoxin Less than 0.15 ng/mL (0.8-2.0)
[2020-09-22] MEDS ORDERED: Magnesium Sulfate 2 GM in Sodium Chloride 0.9% 100 ML IVPB SCH (15:15)
--- NOTE | 2020-09-22 15:18 | PDOC.HOSPP ---
- Subjective Encounter Date: 09/22/20 Encounter Time: 09:15 Subjective: Patient seen and examined for acute CVA. Denies any new focal deficit. Speech improving. No chest pain or shortness of breath. No fever, chills or nausea. - Objective Vital Signs & Weight: Vital Signs (12 hours) Temp Pulse Resp BP Pulse Ox 09/22/20 12:00 98.3 F 98 16 124/86 98 09/22/20 07:58 98 F 73 16 139/99 H 100 Weight Admit Weight 157 lb 3.2 oz Weight 152 lb 6.4 oz I&O: 09/21/20 09/22/20 09/23/20 06:59 06:59 06:59 Intake Total 2640 1100 Balance 2640 1100 Result Diagrams: 09/20/20 04:39 09/22/20 04:26 Additional Labs: Accuchecks 09/22/20 09/22/20 09/21/20 10:44 05:41 16:33 POC Glucose 230 H 210 H 227 H Abnormal Lab Results - Last 48 hrs 09/22/20 04:26: Sodium 135 L, Carbon Dioxide 21 L 09/22/20 12:58: Digoxin Less than 0.15 L EKG Reviewed by me: Yes (A. fib on telemetry/NSVT earlier) Hospitalist ROS - Review of Systems Cardiovascular: denies: chest pain, palpitations, orthopnea, paroxysmal noc. dyspnea, edema, light headedness, other Gastrointestinal: denies: nausea, vomiting, abdominal pain, diarrhea, constipation, melena, hematochezia, other - Medication Medications: Active Medications Generic Name Dose Route Start Last Admin Trade Name Arabella PRN Reason Stop Dose Admin Acetaminophen 650 mg 09/19/20 19:48 09/20/20 20:40 Acetaminophen 325 Mg Tab PO 650 mg Q4H PRN Administration Headache/Fever/Mild Pain (1-3) Aspirin 81 mg 09/20/20 09:00 09/22/20 10:13 Aspirin 81 Mg Enteric Coated Tablet PO 81 mg DAILY DONYA Administration Atorvastatin Calcium 40 mg 09/19/20 21:00 09/21/20 20:14 Atorvastatin Calcium 40 Mg Tab PO 40 mg HS DONYA Administration Cholecalciferol 800 units 09/20/20 09:00 09/22/20 10:12 Cholecalciferol (Vitamin D3) 400 Units Tab PO 800 units DAILY DONYA Administration Dabigatran 150 mg 09/21/20 09:00 09/22/20 10:13 Dabigatran 150 Mg Capsule PO 150 mg BID DONYA Administration Donepezil HCl 5 mg 09/20/20 09:00 09/22/20 10:13 Donepezil Hcl 5 Mg Tab PO 5 mg DAILY DONYA Administration Ezetimibe 10 mg 09/20/20 09:00 09/22/20 10:12 Ezetimibe 10 Mg Tab PO 10 mg DAILY DONYA Administration Famotidine 20 mg 09/20/20 09:00 09/22/20 10:13 Famotidine 20 Mg Tab PO 20 mg 0900 DONYA Administration Glimepiride 8 mg 09/21/20 08:00 09/22/20 10:13 Glimepiride 4 Mg Tab PO 8 mg QAM-WM DONYA Administration Insulin Human Lispro 0 units 09/19/20 19:52 09/22/20 11:45 Humalog 300 Units/3 Ml Vial SC 4 unit .MODERATE SLIDING SC PRN Administration Moderate Correctional Scale Insulin Human Lispro 0 units 09/19/20 19:52 09/20/20 20:50 Humalog 300 Units/3 Ml Vial SC 3 unit .BEDTIME SLIDING SC PRN Administration Bedtime Correctional Scale Insulin Human NPH 10 unit 09/22/20 09:00 09/22/20 10:14 Nph, Human Insulin Isophane 300 Unit/3 Ml Vial SC 10 unit DAILY DONYA Administration Magnesium Oxide 400 mg 09/20/20 09:00 09/22/20 10:13 Magnesium Oxide 400 Mg Tab PO 400 mg DAILY DONYA Administration Metoprolol Tartrate 25 mg 09/20/20 09:00 09/22/20 10:13 Metoprolol Tartrate 25 Mg Tab PO 25 mg BID DONYA Administration Quetiapine Fumarate 50 mg 09/20/20 21:00 09/21/20 20:14 Quetiapine Fumarate 100 Mg Tab PO 50 mg HS DONYA Administration Senna/Docusate Sodium 1 tab 09/21/20 21:00 09/22/20 10:13 Senokot S 8.6-50 Mg Tab PO Not Given BID DONYA - Exam General Appearance: NAD Neck: supple, no JVD Heart: no murmur, no gallops, irregular Respiratory: no wheezes, no rales Gastrointestinal: soft, non-tender, non-distended, no guarding Extremities: no cyanosis Neurological: no new deficit Psychiatric: normal affect, A&O x 3 Hosp A/P - Plan Patient is a 70-year-old -[place] male with atrial fibrillation on Pradaxa, hypertension, diabetes mellitus type 2, hyperlipidemia and history of CVA in 2008 presented to the hospital with strokelike symptoms. CT scan of the brain showed findings suggestive of prior left MCA infarction without any new findings. CT angiogram of the head and neck in the emergency room showed occlusion of the left M2 branch within the sylvian fissure. There was no hemodynamically significant stenosis involving the arterial structures of the neck. Please refer to the history and physical for further details. The patient was admitted to the stroke unit with a diagnosis of acute CVA. MRI of the brain was consistent with acute posterior MCA infarction. Echocardiogram showed ejection fraction 30 to 35% with mild to moderate mitral regurgitation, mild to moderate tricuspid regurgitation with left atrium dilatation. Patient was evaluated by neurology and cardiology. Neurology recommended addition of aspirin along with Pradaxa. Cardiology recommended discontinuation of Cardizem and added digoxin due to low ejection fraction. Assessment: Acute left posterior MCA CVAsuspected embolic Chronic systolic heart failure ejection fraction 3540% range Chronic atrial fibrillation on Pradaxa Nonsustained ventricular tachycardia Speech deficit due to above Diabetes mellitus type 2 Benign prostatic hypertrophy CKD stage II Hyponatremia/hypomagnesemia Hyperkalemiaresolved Dementia Hyperlipidemia History of CVA Plan: Continue aspirin with Pradaxa. Replace magnesium. Continue metoprolol. Continue statins. Continue glimepiride with NPH. Continue sliding scale. Await LifeVest. Digoxin added today. Cardizem discontinued. Patient was counseled on congestive heart failure.
[2020-09-22] MEDS ORDERED: Magnesium 2 GM/50 ML 2 GM in Premix Bag 1 BAG IVPB SCH (16:30)
[2020-09-22] MEDS: Atorvastatin Calcium 40 MG TAB PO SCH (21:10)
[2020-09-23] MEDS: HumaLOG 300 UNITS/3 ML VIAL SC PRN (05:48)
[2020-09-23] MEDS ORDERED: Losartan 25 MG TAB PO SCH (09:00)
[2020-09-23] MEDS ORDERED: Digoxin 0.125 MG TAB PO SCH (09:00)
[2020-09-23] MEDS: Donepezil HCl 5 MG TAB PO SCH (09:52)
[2020-09-23] MEDS: Aspirin 81 mg Enteric Coated Tablet PO SCH (09:52)
[2020-09-23] MEDS: Ezetimibe 10 MG TAB PO SCH (09:52)
[2020-09-23] MEDS: Famotidine 20 MG TAB PO SCH (09:52)
[2020-09-23] MEDS: Magnesium Oxide 400 MG TAB PO SCH (09:52)
[2020-09-23] MEDS: Cholecalciferol (Vitamin D3) 400 UNITS TAB PO SCH (09:53)
[2020-09-23] MEDS: Dabigatran 150 mg Capsule PO SCH (09:53)
[2020-09-23] MEDS: Glimepiride 4 MG TAB PO SCH (09:53)
[2020-09-23] MEDS: Metoprolol Tartrate 25 MG TAB PO SCH (09:53)
[2020-09-23] MEDS: NPH, Human Insulin Isophane 300 UNIT/3 ML VIAL SC SCH (09:54)
[2020-09-23] MEDS: Senokot S 8.6-50 MG TAB PO SCH (09:54)
--- NOTE | 2020-09-23 12:13 | CT ---
CT angiogram head CT angiogram neck: 09/19/2020 COMPARISON: None HISTORY: Acute stroke symptoms, right leg dragging, aphasia TECHNIQUE: Axial CT imaging at 1.25 mm intervals from vertex through lung apices with IV contrast usi ng CT angiogram protocol. Coronal and sagittal 3-D reformatted imaging obtained. FINDINGS: The imaged lung apices appear unremarkable. The visualized paranasal sinuses and mastoid air cells appear well-aerated. The retroantral fat and p arapharyngeal fat appears clear bilaterally. Parotid glands and submandibular glands appear grossly unremarkable. Limited assessment of the aerodigestive tract appears grossly unremarkable. Origin of the innominate artery, left common carotid artery, left subclavian artery, right common car otid artery, and right subclavian artery unremarkable. Bilateral vertebral artery origins are unremarkable. On the basis of NASCET criteria there is no hemodynamically significant stenosis involving the common carotid artery or the internal carotid artery on either side. The proximal aspect of the left common carotid artery is tortuous and is partially obscured by streak artifact from venous contrast media. Bilateral vertebral arteries appear grossly unremarkable. The basilar artery and its branches appear patent. No saccular aneurysm, high-grade stenosis, or vasc ular occlusion is appreciated involving the posterior circulation on either side. The ICA bifurcation and the M1 segment appears patent bilaterally. There is occlusion of an M2 branch on the left within the posterior aspect of the left sylvian fissure, best seen on coronal image 46, axial image 205, and sagittal image 64. The A1 segment and the distal ELMO branches appear intact bilaterally. Distal MCA branches on the righ t appear unremarkable. No lymphadenopathy is noted in the neck. Osseous structures demonstrate multilevel cervical spine deg enerative change with disc space narrowing and posterior/anterior osteophyte formation, most prominent at the C3-4, C4-5, and C5-6 levels. No acute osseous abnormality noted. IMPRESSION: Occlusion of a left M2 branch within the sylvian fissure. No hemodynamically significant stenosis involving the arterial structures of the neck on the basis of NASCET criteria. Dr. Melendez made aware at 6:10 PM 09/19/2020 Transcribed Date/Time: 09/23/2020 12:12 PM
[2020-09-23 15:59] VITALS: BP 102/71; TEMP 98
--- NOTE | 2020-09-23 16:12 | PDOC.CPN ---
- Subjective Date: 09/23/20 Time: 08:45 Interval history: No overnight events. No complaints. - Review of Systems General: denies: fever/chills, weight/appetite/sleep changes, night sweats, fatigue Respiratory: denies: cough, congestion, shortness of breath, exercise intolerance Cardiovascular: denies: chest pain, palpitation, edema, paroxysmal nocturnal dyspnea, orthopnea Gastrointestinal: denies: nausea, vomiting, diarrhea, constipation, abd pain, GI bleeding Musculoskeletal: denies: pain, tenderness, stiffness, swelling, arthritis/arthralgias Neurological: denies: numbness, syncope, seizure, weakness - Objective Allergies/Adverse Reactions: Allergies Allergy/AdvReac Type Severity Reaction Status Date / Time No Known Drug Allergies Allergy Verified 09/19/20 21:43 Visit Medications: Current Medications Acetaminophen (Acetaminophen 325 Mg Tab) 650 mg PO Q4H PRN PRN Reason: Headache/Fever/Mild Pain (1-3) Last Admin: 09/20/20 20:40 Dose: 650 mg Documented by: Aspirin (Aspirin 81 Mg Enteric Coated Tablet) 81 mg PO DAILY [facility] Last Admin: 09/23/20 09:52 Dose: 81 mg Documented by: Atorvastatin Calcium (Atorvastatin Calcium 40 Mg Tab) 40 mg PO HS [facility] Last Admin: 09/22/20 21:10 Dose: 40 mg Documented by: Cholecalciferol (Cholecalciferol (Vitamin D3) 400 Units Tab) 800 units PO DAILY [facility] Last Admin: 09/23/20 09:53 Dose: 800 units Documented by: Dabigatran (Dabigatran 150 Mg Capsule) 150 mg PO BID [facility] Last Admin: 09/23/20 09:53 Dose: 150 mg Documented by: Dextrose/Water (Dextrose 50% Abboject 50 Ml Syringe) 25 gm SLOW IVP PRN PRN PRN Reason: Hypoglycemia Digoxin (Digoxin 0.125 Mg Tab) 0.125 mg PO DAILY [facility] Last Admin: 09/23/20 09:53 Dose: 0.125 mg Documented by: Donepezil HCl (Donepezil Hcl 5 Mg Tab) 5 mg PO DAILY [facility] Last Admin: 09/23/20 09:52 Dose: 5 mg Documented by: Ezetimibe (Ezetimibe 10 Mg Tab) 10 mg PO DAILY [facility] Last Admin: 09/23/20 09:52 Dose: 10 mg Documented by: Famotidine (Famotidine 20 Mg Tab) 20 mg PO 0900 [facility] Last Admin: 09/23/20 09:52 Dose: 20 mg Documented by: Glimepiride (Glimepiride 4 Mg Tab) 8 mg PO QAM-WM [facility] Last Admin: 09/23/20 09:53 Dose: 8 mg Documented by: Glucagon (Glucagon 1 Mg/Ml Vial) 1 mg IM PRN PRN PRN Reason: Hypoglycemia Hydralazine HCl (Hydralazine 20 Mg/Ml Vial) 10 mg SLOW IVP Q4H PRN PRN Reason: BP > 220/110 Dextrose/Water (D5w) 1,000 mls @ 0 mls/hr IV .Q0M PRN PRN Reason: Hypoglycemia Insulin Human Lispro (Humalog 300 Units/3 Ml Vial) 0 units SC .MODERATE SLIDING SC PRN PRN Reason: Moderate Correctional Scale Last Admin: 09/23/20 05:48 Dose: 2 unit Documented by: Insulin Human Lispro (Humalog 300 Units/3 Ml Vial) 0 units SC .BEDTIME SLIDING SC PRN PRN Reason: Bedtime Correctional Scale Last Admin: 09/22/20 23:32 Dose: 3 unit Documented by: Insulin Human NPH (Nph, Human Insulin Isophane 300 Unit/3 Ml Vial) 10 unit SC DAILY [facility] Last Admin: 09/23/20 09:54 Dose: 10 unit Documented by: Labetalol HCl (Labetalol Hcl 100 Mg/20 Ml Vial) 20 mg SLOW IVP Q1H PRN PRN Reason: BP > 220/110 Losartan Potassium (Losartan 25 Mg Tab) 25 mg PO DAILY [facility] Last Admin: 09/23/20 09:52 Dose: 25 mg Documented by: Magnesium Oxide (Magnesium Oxide 400 Mg Tab) 400 mg PO DAILY [facility] Last Admin: 09/23/20 09:52 Dose: 400 mg Documented by: Methocarbamol (Methocarbamol 500 Mg Tab) 1,000 mg PO TID PRN PRN Reason: Muscle Spasm Metoprolol Tartrate (Metoprolol Tartrate 25 Mg Tab) 25 mg PO BID [facility] Last Admin: 09/23/20 09:53 Dose: 25 mg Documented by: Ondansetron HCl (Ondansetron Pf 4 Mg/2 Ml Vial) 4 mg IVP Q6H PRN PRN Reason: Nausea/Vomiting Ondansetron HCl (Ondansetron Odt 4 Mg Tab) 4 mg PO Q6H PRN PRN Reason: Nausea/Vomiting Quetiapine Fumarate (Quetiapine Fumarate 100 Mg Tab) 50 mg PO HS [facility] Last Admin: 09/22/20 21:09 Dose: 50 mg Documented by: Senna/Docusate Sodium (Senokot S 8.6-50 Mg Tab) 1 tab PO BID [facility] Last Admin: 09/23/20 09:54 Dose: Not Given Documented by: Sodium Chloride (Flush - Normal Saline 10 Ml Syringe) 10 ml IVF PRN PRN PRN Reason: Saline Flush Vital Signs & Weight: Vital Signs Temp Pulse Resp BP Pulse Ox 09/23/20 15:58 98.0 F 87 16 102/71 100 09/23/20 11:16 98.2 F 65 20 124/79 99 09/23/20 09:53 115 H 09/23/20 07:26 97.6 F 85 16 131/87 100 Admit Weight 157 lb 3.2 oz Weight 156 lb 6.4 oz - Physical Exam General: appears well, no apparent distress HEENT: mucus membranes moist Cardiac: other (IRR IRR) Lungs: normal exam, no wheeze, rales, rhonchi Neuro: grossly intact Abdomen: soft Skin: clear - Labs Result Diagrams: 09/20/20 04:39 09/22/20 04:26 Troponin/CKMB Troponin I 0.016 ng/mL (< 0.028) 09/19/20 18:08 - Assessment/Plan Assessment/Plan: 1. Persistent AF 2. 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 Stable on current meds. Ok for discharge once vest placed. Will plan for outpatient stress.
--- NOTE | 2020-09-24 13:08 | PDOC.DS.DS ---
Provider - Provider Date of Admission: 09/19/20 19:24 Date of Discharge: 09/23/20 Admitting Provider: Eliseo Morales MD Consultations: Cardiology, Neurology Primary Care Physician: Everardo Marcum Course - Hospital Course Hospital Course: Patient is a 70-year-old -[place] male with atrial fibrillation on Pradaxa, hypertension, diabetes mellitus type 2, hyperlipidemia and history of CVA in 2008 presented to the hospital with strokelike symptoms. CT scan of the brain showed findings suggestive of prior left MCA infarction without any new findings. CT angiogram of the head and neck in the emergency room showed occlusion of the left M2 branch within the sylvian fissure. There was no hemodynamically significant stenosis involving the arterial structures of the neck. Please refer to the history and physical for further details. The patient was admitted to the stroke unit with a diagnosis of acute CVA. MRI of the brain was consistent with acute posterior MCA infarction. Echocardiogram showed ejection fraction 30 to 35% with mild to moderate mitral regurgitation, mild to moderate tricuspid regurgitation with left atrium dilatation. Patient was evaluated by neurology and cardiology. Neurology recommended addition of aspirin along with Pradaxa. Cardiology recommended discontinuation of Cardizem and added digoxin due to low ejection fraction. LifeVest set up is in progress. He was advised to follow-up with cardiology and neurology as outpatient. Risk limited to life-threatening bleeding from anticoagulation/antiplatelet were discussedpatient stated understanding. Home health care has been arranged. He will be discharged once cleared by cardiology. Lifestyle modification was emphasized. Final diagnosis: Acute left posterior MCA CVAsuspected embolic Chronic systolic heart failure ejection fraction 3540% range Chronic atrial fibrillation on Pradaxa Nonsustained ventricular tachycardia Speech deficit due to above Diabetes mellitus type 2 Benign prostatic hypertrophy CKD stage II Hyponatremia/hypomagnesemia Hyperkalemiaresolved Dementia Hyperlipidemia History of CVA Resuscitation Status: 09/19/20 19:48 Resuscitation Status Routine Co-Sign Provider: Resuscitation Status: FULL: Full Resuscitation Discussed with: patient and spouse - Labs Lab Results: 09/20/20 04:39 09/22/20 04:26 Abnormal Lab Results - Last 48 hrs 09/22/20 12:58: Digoxin Less than 0.15 L - Physical Exam Vitals: Weight Admit Weight 157 lb 3.2 oz Weight 156 lb 6.4 oz Physical Exam: The patient was seen and examined on the day of discharge. Plan - Discharge Medications Prescriptions: Losartan [Cozaar] 25 mg PO DAILY #30 tab Aspirin [Ecotrin Low Strength] 81 mg PO DAILY #30 tab Digoxin [Lanoxin] 0.125 mg PO DAILY #30 tab Atorvastatin Calcium [Lipitor] 10 mg PO HS #30 tab Home Medications: Medication Instructions Recorded Confirmed Type Cholecalciferol (Vitamin D3) 20 mcg PO DAILY 09/19/20 09/19/20 History [Delta D3] Dabigatran [Pradaxa] 150 mg PO BID 09/19/20 09/19/20 History Donepezil HCl [Aricept] 5 mg PO DAILY 09/19/20 09/19/20 History Glimepiride [Amaryl] 8 mg PO QAM-WM 09/19/20 09/19/20 History Magnesium Oxide [Magox 400] 400 mg PO DAILY 09/19/20 09/19/20 History Methocarbamol [Robaxin] 1,000 mg PO TID PRN 09/19/20 09/19/20 History Metoprolol Tartrate 25 mg PO BID 09/19/20 09/19/20 History QUEtiapine Fumarate [SEROquel] 50 mg PO HS 09/19/20 09/19/20 History Aspirin [Ecotrin Low Strength] 81 mg PO DAILY #30 tab 09/23/20 Rx Atorvastatin Calcium [Lipitor] 10 mg PO HS #30 tab 09/23/20 Rx Digoxin [Lanoxin] 0.125 mg PO DAILY #30 tab 09/23/20 Rx Losartan [Cozaar] 25 mg PO DAILY #30 tab 09/23/20 Rx Allergies: No Known Drug Allergies Allergy (Verified 09/19/20 21:43) - Discharge Instructions Discharge Instructions:: Digoxin level after 2 weeks - PCP to arrange/follow - Follow up Plan Referrals: Cardiac Rehab - [place] [Outside] - 7 Days (Cardiac Rehab ordered by physician to begin 1-2 weeks following discharge. Your closest rehab is the [facility], they will contact you in 3-5 days. If you haven't heard from them then call [phone]. If can't reach them then call the [place] location [phone]. ) Colton Zayas MD [Active] - 10 Days Jeffery Hurt MD [Primary Care Provider] - 3 Days Disposition: HOME Quality - Care Measures CORE MEASURES:: Stroke/TIA - Stroke/TIA Did you prescribe antithrombotic therapy?: Yes Did you prescribe anticoagulant for A Fib/Flutter?: Yes Did you prescribe a statin medication?: Yes
== END 2020-09-23 16:47 | disposition home or self-care (01) | DRG 65 ==
LOC: ERS 17:40 → 2SE 19:24
PROVIDERS: ADMIT Internal Medicine; ATTEND Internal Medicine
DX: I63.432 Cerebral infarction due to embolism of left posterior cerebral artery (principal); I50.22 Chronic systolic (congestive) heart failure; I47.2 Ventricular tachycardia; E87.1 Hypo-osmolality and hyponatremia; I48.19 Other persistent atrial fibrillation; I42.9 Cardiomyopathy, unspecified; E11.22 Type 2 diabetes mellitus with diabetic chronic kidney disease; N40.0 Benign prostatic hyperplasia without lower urinary tract symptoms; E83.42 Hypomagnesemia; E87.5 Hyperkalemia; E78.5 Hyperlipidemia, unspecified; Z20.828 Contact with and (suspected) exposure to other viral communicable diseases; G30.9 Alzheimer's disease, unspecified; F02.80 Dementia in other diseases classified elsewhere, unspecified severity, without behavioral disturbance, psychotic disturbance, mood disturbance, and anxiety; R29.702 NIHSS score 2; R47.01 Aphasia; R29.810 Facial weakness; G83.11 Monoplegia of lower limb affecting right dominant side; N18.30 Chronic kidney disease, stage 3 unspecified; E11.65 Type 2 diabetes mellitus with hyperglycemia; I08.1 Rheumatic disorders of both mitral and tricuspid valves; Z86.73 Personal history of transient ischemic attack (TIA), and cerebral infarction without residual deficits; Z79.899 Other long term (current) drug therapy; Z79.84 Long term (current) use of oral hypoglycemic drugs
CPT/HCPCS: 36415; 36416; 70450; 70496; 70498; 70551; 71045; 80048; 80053; 80061; 80162; 83036; 83735; 84443; 84484; 85025; 85610; 85730; 86850; 86900; 86901; 87635; 93005; 93306; 97139; J1815; J3475; Q9967; U0003

== ENCOUNTER 2024-01-22 12:12 | Inpatient (IN) | payer MEDICARE, OTHER ==
[~2024-01-22 12:12] MED LIST changes: -Iopamidol-370 76% 500 ML 1 ML ONE; +Iopamidol-370 76% 500 ML MDV (1 ML CHARGE) ONE
[2024-01-22 12:33] LABS: #Basophils Less than 0.03 10x3/uL (0.0-0.2); #Eosinphils Less than 0.03 10x3/uL (0.0-0.7); %Basophils 0.1 % (0.0-1.0); %Eosinophils 0.1 % (0.0-10.0); %Lymphocytes 9.2 % (21.0-51.0); %Monocytes 2.7 % (0.0-10.0); %Neutrophils 87.5 % (42.0-75.0); Hematocrit 40.3 % (42.0-52.0); Hemoglobin 12.7 g/dL (14.0-18.0); Mean Corpuscular HGB CONC 31.5 g/dL (32.0-36.0); Mean Corpuscular Hemoglobin 24.9 pg (27.0-31.0); Mean Corpuscular Volume 78.9 fL (78.0-98.0); Mean Platelet Volume 10.3 fL (7.4-10.4); Platelet Count 219 10x3/uL (130-400); RBC Distribution Width 15.2 % (11.5-14.5); Red Blood Cell (RBC) Count 5.11 mill/uL (4.70-6.10)
[2024-01-22 12:46] LABS: Anion Gap 14 mmol/L (10-20); Globulin 3.4 g/dL (2.4-3.5)
[2024-01-22 12:51] LABS: ALT (SGPT) 14 U/L (8-55); AST (SGOT) 19 U/L (5-34); Albumin 3.9 g/dL (3.4-4.8); Alkaline Phosphatase 53 U/L (40-110); BUN (Urea Nitrogen) 13 mg/dL (8.4-25.7); Bilirubin, Total 0.4 mg/dL (0.2-1.2); CK (CPK) 539 U/L (30-200); Calc. Creatinine Clearance 0 mL/min (70-130); Calcium 9.4 mg/dL (7.8-10.44); Carbon Dioxide 22 mmol/L (23-31); Chloride 106 mmol/L (98-107); Estimated GFR 65; Glucose 155 mg/dL (83-110); Potassium 3.9 mmol/L (3.5-5.1); Protein, Total 7.3 g/dL (5.8-8.1); Sodium 138 mmol/L (136-145)
[2024-01-22 12:55] LABS: Troponin I Less than 0.010 ng/mL (< 0.028)
[2024-01-22 13:04] LABS: INR-International Normal Ratio 1.2; PTT 30.5 sec (22.9-36.1); Prothrombin Time 15.2 sec (12.0-14.7)
[2024-01-22 13:22] LABS: Acetaminophen Less than 10 mcg/mL (10.0-30.0); Alcohol Less than 10.0 mg/dL (Less than 10); Lipase 11 U/L (8-78); Salicylate Less than 8.0 mg/dL (15.0-30.0)
[2024-01-22 13:33] LABS: Amphetamine Not Detected (NotDetected); Barbiturates Screen Not Detected (NotDetected); Benzodiazepine Screen Not Detected (NotDetected); Cocaine Metabolite Screen Not Detected (NotDetected); Methadone Not Detected (NotDetected); Methamphetamine Not Detected (NotDetected); Opiate Screen Not Detected (NotDetected); Oxycodone Screen Not Detected (NotDetected); Phencyclidine (PCP) Not Detected (NotDetected); THC/Cannabinoid Screen Not Detected (NotDetected); Tricyclic Screen Not Detected (NotDetected)
[2024-01-22 13:37] LABS: Bacteria/HPF None Seen HPF (None Seen); Bilirubin Negative (Negative); Blood, Urine Trace (Negative); CAUTI Indications for Culture Alt mental st,lethar; Clarity Clear (Clear); Glucose, Urine (Dipstick) 300 mg/dL (Negative); Ketone, Urine Negative (Negative); Leukocyte Negative Leu/uL (Negative); Nitrite Negative (Negative); Protein, Urine (Dipstick) Negative (Neg-Trace); Squamous Epithelial 0-3 HPF (0-3); Urobilinogen Normal mg/dL (Less than 2); WBC/HPF 0-3 HPF (0-3)
[2024-01-22 13:41] LABS: Urine Culture Reflex No No
[2024-01-22] MEDS ORDERED: Glucagon 1 MG/ML KIT IM PRN (16:24)
[2024-01-22] MEDS ORDERED: Ondansetron PF 4 MG/2 ML Vial IVP PRN (16:24)
[2024-01-22] MEDS ORDERED: Dextrose 5% in Water 1,000 ML IV PRN (16:24)
[2024-01-22] MEDS ORDERED: hydrALAZINE 20 MG/ML VIAL SLOW IVP PRN (16:24)
[2024-01-22] MEDS ORDERED: Ondansetron ODT 4 MG TAB PO PRN (16:24)
[2024-01-22] MEDS: Famotidine/PF 20 mg/2ml Vial SLOW IVP SCH (21:51)
[2024-01-22] MEDS: Atorvastatin Calcium 40 MG TAB PO SCH (22:16)
[2024-01-23 05:56] LABS: #Basophils 0.04 10x3/uL (0.0-0.2); %Basophils 0.3 % (0.0-1.0); %Eosinophils 0.2 % (0.0-10.0); %Lymphocytes 16.7 % (21.0-51.0); %Monocytes 4.9 % (0.0-10.0); %Neutrophils 77.6 % (42.0-75.0); Hematocrit 39.4 % (42.0-52.0); Hemoglobin 12.4 g/dL (14.0-18.0); Mean Corpuscular HGB CONC 31.5 g/dL (32.0-36.0); Mean Corpuscular Hemoglobin 24.4 pg (27.0-31.0); Mean Corpuscular Volume 77.6 fL (78.0-98.0); Mean Platelet Volume 10.3 fL (7.4-10.4); Platelet Count 220 10x3/uL (130-400); RBC Distribution Width 15.4 % (11.5-14.5); Red Blood Cell (RBC) Count 5.08 mill/uL (4.70-6.10)
[2024-01-23 06:15] LABS: Anion Gap 13 mmol/L (10-20); BUN (Urea Nitrogen) 15 mg/dL (8.4-25.7); Calc. Creatinine Clearance 58 mL/min (70-130); Carbon Dioxide 23 mmol/L (23-31); Cardiac Risk 2.3 (Less than 4.5); Chloride 106 mmol/L (98-107); Cholesterol 96 mg/dl (< 200 Desired); Estimated GFR 64; Glucose 125 mg/dL (83-110); HDL Cholesterol 41 mg/dL (>60 Neg Risk); LDL Cholesterol, Calculated 46 mg/dL; Potassium 4.1 mmol/L (3.5-5.1); Sodium 138 mmol/L (136-145); Triglycerides 44 mg/dL (Less than 150)
[2024-01-23] MEDS: Aspirin 300 MG Suppository PR SCH (09:03)
[2024-01-23] MEDS: Dextrose 50% Abboject 50 ML SYRINGE SLOW IVP PRN (17:15)
[2024-01-24 05:40] LABS: #Basophils 0.04 10x3/uL (0.0-0.2); %Basophils 0.5 % (0.0-1.0); %Eosinophils 1.4 % (0.0-10.0); %Lymphocytes 31.2 % (21.0-51.0); %Neutrophils 58.7 % (42.0-75.0); Hematocrit 42.5 % (42.0-52.0); Hemoglobin 13.7 g/dL (14.0-18.0); Mean Corpuscular HGB CONC 32.2 g/dL (32.0-36.0); Mean Corpuscular Hemoglobin 24.6 pg (27.0-31.0); Mean Corpuscular Volume 76.2 fL (78.0-98.0); Mean Platelet Volume 10.3 fL (7.4-10.4); Platelet Count 204 10x3/uL (130-400); RBC Distribution Width 15.5 % (11.5-14.5); Red Blood Cell (RBC) Count 5.58 mill/uL (4.70-6.10)
[2024-01-24 05:50] LABS: Hemoglobin A1c 6.6 % (4.0-6.0)
[2024-01-24 06:30] LABS: Anion Gap 15 mmol/L (10-20); Globulin 3.3 g/dL (2.4-3.5)
[2024-01-24 06:34] LABS: ALT (SGPT) 16 U/L (8-55); AST (SGOT) 25 U/L (5-34); Albumin 3.6 g/dL (3.4-4.8); Alkaline Phosphatase 47 U/L (40-110); BUN (Urea Nitrogen) 15 mg/dL (8.4-25.7); Bilirubin, Total 0.6 mg/dL (0.2-1.2); Calc. Creatinine Clearance 60 mL/min (70-130); Carbon Dioxide 20 mmol/L (23-31); Chloride 105 mmol/L (98-107); Estimated GFR 66; Glucose 98 mg/dL (83-110); Magnesium 1.8 mg/dL (1.6-2.6); Potassium 3.7 mmol/L (3.5-5.1); Protein, Total 6.9 g/dL (5.8-8.1); Sodium 136 mmol/L (136-145)
[2024-01-24] MEDS ORDERED: E-Z-HD 98% W/W 340GM BOT (x-ray ONLY) ONE (09:20)
[2024-01-24] MEDS: Digoxin 0.5 MG/2 ML AMP SLOW IVP SCH (22:06)
[2024-01-24] MEDS: Magnesium 2 GM/50 ML(in water) 2 GM in Premix 1 BAG IVPB SCH (22:06)
[2024-01-24] MEDS: dilTIAZem 125 MG in Sodium Chloride 0.9% 100 ML IVPB SCH (23:36)
[2024-01-25 04:28] LABS: #Basophils 0.04 10x3/uL (0.0-0.2); %Basophils 0.5 % (0.0-1.0); %Eosinophils 3.8 % (0.0-10.0); %Lymphocytes 24.1 % (21.0-51.0); %Monocytes 8.4 % (0.0-10.0); %Neutrophils 62.8 % (42.0-75.0); Hematocrit 46.3 % (42.0-52.0); Hemoglobin 14.9 g/dL (14.0-18.0); Mean Corpuscular HGB CONC 32.2 g/dL (32.0-36.0); Mean Corpuscular Volume 74.6 fL (78.0-98.0); Mean Platelet Volume 10.2 fL (7.4-10.4); Platelet Count 216 10x3/uL (130-400); RBC Distribution Width 15.9 % (11.5-14.5); Red Blood Cell (RBC) Count 6.21 mill/uL (4.70-6.10)
[2024-01-25 04:45] LABS: Anion Gap 11 mmol/L (10-20); Digoxin 1.45 ng/mL (0.8-2.0)
[2024-01-25 04:49] LABS: BUN (Urea Nitrogen) 16 mg/dL (8.4-25.7); Calc. Creatinine Clearance 62 mL/min (70-130); Carbon Dioxide 21 mmol/L (23-31); Chloride 106 mmol/L (98-107); Estimated GFR 68; Glucose 132 mg/dL (83-110); Magnesium 2.6 mg/dL (1.6-2.6); Potassium 4.1 mmol/L (3.5-5.1); Sodium 134 mmol/L (136-145)
[2024-01-25] MEDS: Aspirin 81 mg Enteric Coated Tablet PO SCH (14:40)
[2024-01-26 05:53] LABS: Anion Gap 14 mmol/L (10-20)
[2024-01-26 05:55] LABS: BUN (Urea Nitrogen) 20 mg/dL (8.4-25.7); Calc. Creatinine Clearance 45 mL/min (70-130); Calcium 9.2 mg/dL (7.8-10.44); Carbon Dioxide 21 mmol/L (23-31); Chloride 104 mmol/L (98-107); Estimated GFR 48; Glucose 150 mg/dL (83-110); Potassium 4.5 mmol/L (3.5-5.1); Sodium 134 mmol/L (136-145)
[2024-01-26 06:02] LABS: Digoxin 0.95 ng/mL (0.8-2.0)
[2024-01-26] MEDS: Losartan 25 MG TAB PO SCH (11:20)
[2024-01-26] MEDS: Aspirin 81 mg Enteric Coated Tablet PO SCH (11:20)
[2024-01-26] MEDS: Donepezil HCl 10 MG TAB PO SCH ×2 (12:40→21:31)
[2024-01-26] MEDS: Famotidine 20 MG TAB PO SCH (21:31)
[2024-01-27] MEDS: Metoprolol Tartrate 5 MG (5 mL) VIAL IVP SCH ×2 (03:47→21:14)
[2024-01-27 04:07] LABS: #Basophils Less than 0.03 10x3/uL (0.0-0.2); %Basophils 0.1 % (0.0-1.0); %Eosinophils 0.3 % (0.0-10.0); %Lymphocytes 11.3 % (21.0-51.0); %Neutrophils 74.9 % (42.0-75.0); Hematocrit 45.7 % (42.0-52.0); Hemoglobin 14.6 g/dL (14.0-18.0); Mean Corpuscular HGB CONC 31.9 g/dL (32.0-36.0); Mean Corpuscular Hemoglobin 24.1 pg (27.0-31.0); Mean Corpuscular Volume 75.5 fL (78.0-98.0); Mean Platelet Volume 10.1 fL (7.4-10.4); Platelet Count 197 10x3/uL (130-400); RBC Distribution Width 15.9 % (11.5-14.5); Red Blood Cell (RBC) Count 6.05 mill/uL (4.70-6.10)
[2024-01-27 04:22] LABS: Anion Gap 17 mmol/L (10-20)
[2024-01-27 04:24] LABS: BUN (Urea Nitrogen) 27 mg/dL (8.4-25.7); Calc. Creatinine Clearance 33 mL/min (70-130); Calcium 9.7 mg/dL (7.8-10.44); Carbon Dioxide 21 mmol/L (23-31); Chloride 104 mmol/L (98-107); Estimated GFR 33; Glucose 181 mg/dL (83-110); Sodium 137 mmol/L (136-145)
[2024-01-27] MEDS: Lactated Ringer's 1,000 ML IV SCH (08:31)
[2024-01-27] MEDS: Acetaminophen 650 MG Suppository PR PRN (16:19)
[2024-01-27] MEDS ORDERED: Sodium Chloride 0.9% 500 ML IVPB SCH (17:15)
[2024-01-27] MEDS: Sodium Chloride 0.9% 500 ML IVPB SCH (17:54)
[2024-01-27 18:16] LABS: Bacteria/HPF 4+ HPF (None Seen); Bilirubin Negative (Negative); Blood, Urine 2+ (Negative); CAUTI Indications for Culture Fever or rigors; Clarity Turbid (Clear); Glucose, Urine (Dipstick) 300 mg/dL (Negative); Ketone, Urine 10 mg/dL (Negative); Leukocyte 500 Leu/uL (Negative); Nitrite 2+ (Negative); Protein, Urine (Dipstick) 50 mg/dL (Neg-Trace); Specific Gravity, Urine 1.026 (1.002-1.036); Squamous Epithelial 0-3 HPF (0-3); Urobilinogen Normal mg/dL (Less than 2); WBC/HPF Greater than 50 HPF (0-3); pH, Urine 5.5 (5.0-9.0)
[2024-01-27 18:18] LABS: Urine Culture Reflex Yes Yes
[2024-01-28 04:34] LABS: Hematocrit 42.8 % (42.0-52.0); Hemoglobin 13.7 g/dL (14.0-18.0); Mean Corpuscular Hemoglobin 24.1 pg (27.0-31.0); Mean Corpuscular Volume 75.4 fL (78.0-98.0); Mean Platelet Volume 10.7 fL (7.4-10.4); Platelet Count 187 10x3/uL (130-400); Red Blood Cell (RBC) Count 5.68 mill/uL (4.70-6.10)
[2024-01-28 04:35] LABS: Anion Gap 15 mmol/L (10-20)
[2024-01-28 04:51] LABS: BUN (Urea Nitrogen) 30 mg/dL (8.4-25.7); Calc. Creatinine Clearance 33 mL/min (70-130); Calcium 9.2 mg/dL (7.8-10.44); Carbon Dioxide 22 mmol/L (23-31); Chloride 106 mmol/L (98-107); Estimated GFR 33; Glucose 184 mg/dL (83-110); Potassium 5.2 mmol/L (3.5-5.1); Sodium 138 mmol/L (136-145)
[2024-01-28 05:08] LABS: Anisocytosis SLIGHT = 6-15 cells HPF (0-5); Lymphocytes 7 % (21-51); Microcytosis SLIGHT = 6-15 cells HPF (0-5); Monocytes 8 % (0-10); Neutrophil 85 % (42-75); Ovalocytes SLIGHT = 2-5 cells HPF (0-1); Platelet Adequacy Comment Platelets Normal; Smudge Cells 8.9 %; Vacuoles SLIGHT
[2024-01-28] MEDS: Sodium Chloride 0.9% 1,000 ML IV SCH (14:26)
[2024-01-28] MEDS ORDERED: Admixture Fee 1 EACH in manNITOL 20% 125 ML IVPB SCH (18:00)
[2024-01-28] MEDS: Metoprolol Tartrate 5 MG (5 mL) VIAL IVP SCH ×3 (19:29→23:10)
[2024-01-28] MEDS: Cefepime 1 GM in Sodium Chloride 0.9% 100 ML IVPB SCH (19:29)
[2024-01-29 05:23] LABS: #Basophils 0.08 10x3/uL (0.0-0.2); %Basophils 0.4 % (0.0-1.0); %Eosinophils 0.9 % (0.0-10.0); %Monocytes 8.3 % (0.0-10.0); %Neutrophils 80.8 % (42.0-75.0); Hematocrit 39.6 % (42.0-52.0); Hemoglobin 12.8 g/dL (14.0-18.0); Mean Corpuscular HGB CONC 32.3 g/dL (32.0-36.0); Mean Corpuscular Hemoglobin 24.1 pg (27.0-31.0); Mean Corpuscular Volume 74.6 fL (78.0-98.0); Mean Platelet Volume 10.9 fL (7.4-10.4); Platelet Count 177 10x3/uL (130-400); RBC Distribution Width 16.2 % (11.5-14.5); Red Blood Cell (RBC) Count 5.31 mill/uL (4.70-6.10)
[2024-01-29 05:35] LABS: Anion Gap 15 mmol/L (10-20); Globulin 3.8 g/dL (2.4-3.5)
[2024-01-29 05:39] LABS: ALT (SGPT) 51 U/L (8-55); AST (SGOT) 34 U/L (5-34); Albumin 2.7 g/dL (3.4-4.8); Alkaline Phosphatase 51 U/L (40-110); BUN (Urea Nitrogen) 31 mg/dL (8.4-25.7); Bilirubin, Total 0.8 mg/dL (0.2-1.2); Calc. Creatinine Clearance 39 mL/min (70-130); Calcium 8.8 mg/dL (7.8-10.44); Carbon Dioxide 19 mmol/L (23-31); Chloride 110 mmol/L (98-107); Estimated GFR 40; Glucose 162 mg/dL (83-110); Potassium 4.2 mmol/L (3.5-5.1); Protein, Total 6.5 g/dL (5.8-8.1); Sodium 140 mmol/L (136-145)
[2024-01-30 04:43] LABS: #Basophils 0.08 10x3/uL (0.0-0.2); %Basophils 0.5 % (0.0-1.0); %Eosinophils 3.4 % (0.0-10.0); %Lymphocytes 8.4 % (21.0-51.0); %Monocytes 7.4 % (0.0-10.0); %Neutrophils 79.6 % (42.0-75.0); Hematocrit 44.5 % (42.0-52.0); Hemoglobin 13.5 g/dL (14.0-18.0); Mean Corpuscular HGB CONC 30.3 g/dL (32.0-36.0); Mean Corpuscular Hemoglobin 23.9 pg (27.0-31.0); Mean Corpuscular Volume 78.8 fL (78.0-98.0); Mean Platelet Volume 10.6 fL (7.4-10.4); Platelet Count 168 10x3/uL (130-400); RBC Distribution Width 17.3 % (11.5-14.5); Red Blood Cell (RBC) Count 5.65 mill/uL (4.70-6.10)
[2024-01-30 04:58] LABS: Anion Gap 14 mmol/L (10-20)
[2024-01-30 05:03] LABS: BUN (Urea Nitrogen) 31 mg/dL (8.4-25.7); Calc. Creatinine Clearance 41 mL/min (70-130); Calcium 9.1 mg/dL (7.8-10.44); Carbon Dioxide 20 mmol/L (23-31); Chloride 112 mmol/L (98-107); Estimated GFR 43; Glucose 145 mg/dL (83-110); Potassium 4.3 mmol/L (3.5-5.1); Sodium 142 mmol/L (136-145)
[2024-01-30 05:11] LABS: CRP,High Sensitivity (Inhouse) 26.85 mg/dL (< or = 0.5)
[2024-01-30] MEDS ORDERED: dilTIAZem 125 MG in Sodium Chloride 0.9% 100 ML IVPB SCH (12:45)
[2024-01-30] MEDS: dilTIAZem 125 MG, Admixture Fee 1 EACH in Sodium Chloride 0.9% 100 ML IVPB SCH (14:25)
[2024-01-31] MEDS: HumaLOG 300 UNITS/3 ML VIAL SC PRN (01:07)
[2024-01-31 04:44] LABS: Anion Gap 15 mmol/L (10-20)
[2024-01-31 04:47] LABS: BUN (Urea Nitrogen) 32 mg/dL (8.4-25.7); Calc. Creatinine Clearance 39 mL/min (70-130); Calcium 8.8 mg/dL (7.8-10.44); Carbon Dioxide 16 mmol/L (23-31); Chloride 113 mmol/L (98-107); Estimated GFR 41; Glucose 267 mg/dL (83-110); Potassium 4.2 mmol/L (3.5-5.1); Sodium 140 mmol/L (136-145)
[2024-01-31 06:32] LABS: #Basophils 0.04 10x3/uL (0.0-0.2); %Basophils 0.3 % (0.0-1.0); %Eosinophils 3.7 % (0.0-10.0); %Lymphocytes 11.3 % (21.0-51.0); %Monocytes 9.9 % (0.0-10.0); %Neutrophils 74.3 % (42.0-75.0); Hematocrit 45.6 % (42.0-52.0); Hemoglobin 14.5 g/dL (14.0-18.0); Mean Corpuscular HGB CONC 31.8 g/dL (32.0-36.0); Mean Corpuscular Hemoglobin 24.3 pg (27.0-31.0); Mean Corpuscular Volume 76.4 fL (78.0-98.0); Mean Platelet Volume 10.4 fL (7.4-10.4); Platelet Count 140 10x3/uL (130-400); RBC Distribution Width 17.7 % (11.5-14.5); Red Blood Cell (RBC) Count 5.97 mill/uL (4.70-6.10)
[2024-02-01 05:03] LABS: Hematocrit 44.3 % (42.0-52.0); Hemoglobin 14.2 g/dL (14.0-18.0); Mean Corpuscular HGB CONC 32.1 g/dL (32.0-36.0); Mean Corpuscular Hemoglobin 24.2 pg (27.0-31.0); Mean Corpuscular Volume 75.6 fL (78.0-98.0); Mean Platelet Volume 10.4 fL (7.4-10.4); Platelet Count 157 10x3/uL (130-400); RBC Distribution Width 17.5 % (11.5-14.5); Red Blood Cell (RBC) Count 5.86 mill/uL (4.70-6.10)
[2024-02-01 05:18] LABS: Anion Gap 11 mmol/L (10-20)
[2024-02-01 05:21] LABS: BUN (Urea Nitrogen) 21 mg/dL (8.4-25.7); Calc. Creatinine Clearance 41 mL/min (70-130); Calcium 9.1 mg/dL (7.8-10.44); Carbon Dioxide 20 mmol/L (23-31); Chloride 113 mmol/L (98-107); Estimated GFR 43; Glucose 221 mg/dL (83-110); Potassium 4.3 mmol/L (3.5-5.1); Sodium 140 mmol/L (136-145)
[2024-02-01] MEDS: Furosemide 40 MG (4 mL) VIAL SLOW IVP SCH (16:31)
[2024-02-02] MEDS: HumaLOG 300 UNITS/3 ML VIAL SC PRN ×2 (01:03→18:08)
[2024-02-02 05:01] LABS: Anion Gap 18 mmol/L (10-20); BUN (Urea Nitrogen) 26 mg/dL (8.4-25.7); Calc. Creatinine Clearance 32 mL/min (70-130); Calcium 8.9 mg/dL (7.8-10.44); Carbon Dioxide 18 mmol/L (23-31); Chloride 107 mmol/L (98-107); Estimated GFR 33; Glucose 429 mg/dL (83-110); Potassium 3.9 mmol/L (3.5-5.1); Sodium 139 mmol/L (136-145)
[2024-02-02 05:37] VITALS: BMI 25.8
[2024-02-02] MEDS: Insulin Glargine 30 UNITS/0.3 ML VIAL SC SCH (09:09)
[2024-02-03 06:00] LABS: Hematocrit 39.2 % (42.0-52.0); Hemoglobin 12.5 g/dL (14.0-18.0); Mean Corpuscular HGB CONC 31.9 g/dL (32.0-36.0); Mean Corpuscular Hemoglobin 24.4 pg (27.0-31.0); Mean Corpuscular Volume 76.6 fL (78.0-98.0); Mean Platelet Volume 11.3 fL (7.4-10.4); Platelet Count 215 10x3/uL (130-400); RBC Distribution Width 16.6 % (11.5-14.5); Red Blood Cell (RBC) Count 5.12 mill/uL (4.70-6.10)
[2024-02-03 06:16] LABS: Anion Gap 13 mmol/L (10-20); BUN (Urea Nitrogen) 26 mg/dL (8.4-25.7); Calc. Creatinine Clearance 31 mL/min (70-130); Calcium 8.9 mg/dL (7.8-10.44); Carbon Dioxide 22 mmol/L (23-31); Chloride 110 mmol/L (98-107); Estimated GFR 31; Glucose 220 mg/dL (83-110); Sodium 141 mmol/L (136-145)
[2024-02-03] MEDS ORDERED: PROPOFOL 20 ML ONE (11:08)
[2024-02-03] MEDS ORDERED: Lidocaine 1% PF 5 ML VIAL ONE (11:08)
[2024-02-03] MEDS ORDERED: ePHEDrine Sulfate 50 MG/10 ML VIAL ONE (11:23)
[2024-02-03] MEDS ORDERED: PHENYLEPHRINE-NS 100 MCG/ML 10 ML SYRINGE ONE (11:24)
[2024-02-03] MEDS: dilTIAZem 30 MG TAB PO SCH (16:16)
[2024-02-03] MEDS: dilTIAZem CD 240 MG CAP PO SCH (16:23)
[2024-02-04 04:09] LABS: Anion Gap 11 mmol/L (10-20); BUN (Urea Nitrogen) 29 mg/dL (8.4-25.7); Calc. Creatinine Clearance 34 mL/min (70-130); Calcium 8.6 mg/dL (7.8-10.44); Carbon Dioxide 21 mmol/L (23-31); Chloride 112 mmol/L (98-107); Estimated GFR 35; Glucose 218 mg/dL (83-110); Potassium 4.4 mmol/L (3.5-5.1); Sodium 140 mmol/L (136-145)
[2024-02-04] MEDS ORDERED: Sodium Chloride 0.9% 200 ML IV PRN (08:42)
[2024-02-04] MEDS ORDERED: Nitroglycerin 0.4 MG TAB (25 Tab Bottle) SL PRN (08:42)
[2024-02-04] MEDS ORDERED: dilTIAZem CD 240 MG CAP PO SCH (09:00)
[2024-02-05] MEDS: Insulin Glargine 30 UNITS/0.3 ML VIAL SC SCH ×2 (00:02→20:41)
[2024-02-05 04:31] LABS: #Basophils 0.04 10x3/uL (0.0-0.2); %Basophils 0.4 % (0.0-1.0); %Eosinophils 3.9 % (0.0-10.0); %Lymphocytes 14.1 % (21.0-51.0); %Neutrophils 75.2 % (42.0-75.0); Hematocrit 37.8 % (42.0-52.0); Mean Corpuscular HGB CONC 31.7 g/dL (32.0-36.0); Mean Corpuscular Volume 75.8 fL (78.0-98.0); Mean Platelet Volume 11.6 fL (7.4-10.4); Platelet Count 252 10x3/uL (130-400); RBC Distribution Width 16.9 % (11.5-14.5); Red Blood Cell (RBC) Count 4.99 mill/uL (4.70-6.10)
[2024-02-05 05:07] LABS: Anion Gap 12 mmol/L (10-20); BUN (Urea Nitrogen) 31 mg/dL (8.4-25.7); Calc. Creatinine Clearance 29 mL/min (70-130); Calcium 8.9 mg/dL (7.8-10.44); Carbon Dioxide 20 mmol/L (23-31); Chloride 114 mmol/L (98-107); Estimated GFR 29; Glucose 259 mg/dL (83-110); Potassium 4.6 mmol/L (3.5-5.1); Sodium 141 mmol/L (136-145)
[2024-02-05] MEDS ORDERED: Ipratropium/Albuterol 3 ML NEB NEB PRN (09:47)
[2024-02-05] MEDS: Piperacillin/Tazobactam 3.375 GM in Sodium Chloride 0.9% 100 ML IVPB SCH ×2 (12:01→16:56)
[2024-02-05 13:28] LABS: Bacteria/HPF 1+ HPF (None Seen); Bilirubin Negative (Negative); Blood, Urine 1+ (Negative); CAUTI Indications for Culture Fever or rigors; Calcium Oxalate Crystals 4+ HPF (None Seen); Clarity Extra Turbid (Clear); Glucose, Urine (Dipstick) Greater than 1000 mg/dL (Negative); Ketone, Urine Negative (Negative); Leukocyte Negative Leu/uL (Negative); Nitrite Negative (Negative); Protein, Urine (Dipstick) 50 mg/dL (Neg-Trace); RBC/HPF 21-50 HPF (0-3); Specific Gravity, Urine 1.035 (1.002-1.036); Squamous Epithelial 0-3 HPF (0-3); Urobilinogen Normal mg/dL (Less than 2); pH, Urine 5.5 (5.0-9.0)
[2024-02-05 13:29] LABS: Urine Culture Reflex No No
[2024-02-05] MEDS: Digoxin 0.5 MG/2 ML AMP SLOW IVP SCH (18:20)
[2024-02-05] MEDS: guaiFENesin ER 600 MG TAB PO SCH (20:40)
[2024-02-06 06:50] LABS: #Basophils 0.03 10x3/uL (0.0-0.2); %Basophils 0.2 % (0.0-1.0); %Eosinophils 3.5 % (0.0-10.0); %Lymphocytes 11.8 % (21.0-51.0); %Monocytes 4.3 % (0.0-10.0); %Neutrophils 79.7 % (42.0-75.0); Hemoglobin 11.9 g/dL (14.0-18.0); Mean Corpuscular HGB CONC 31.3 g/dL (32.0-36.0); Mean Corpuscular Hemoglobin 24.1 pg (27.0-31.0); Mean Corpuscular Volume 76.9 fL (78.0-98.0); Mean Platelet Volume 11.4 fL (7.4-10.4); Platelet Count 264 10x3/uL (130-400); RBC Distribution Width 16.8 % (11.5-14.5); Red Blood Cell (RBC) Count 4.94 mill/uL (4.70-6.10)
[2024-02-06 07:28] LABS: Anion Gap 14 mmol/L (10-20); BUN (Urea Nitrogen) 29 mg/dL (8.4-25.7); Calc. Creatinine Clearance 30 mL/min (70-130); Calcium 8.6 mg/dL (7.8-10.44); Carbon Dioxide 19 mmol/L (23-31); Chloride 112 mmol/L (98-107); Estimated GFR 27; Glucose 373 mg/dL (83-110); Potassium 4.4 mmol/L (3.5-5.1); Sodium 141 mmol/L (136-145)
[2024-02-06 07:30] LABS: CRP,High Sensitivity (Inhouse) 12.37 mg/dL (< or = 0.5); Magnesium 2.1 mg/dL (1.6-2.6)
[2024-02-06] MEDS: Digoxin 0.125 MG TAB PO SCH (08:26)
[2024-02-06] MEDS: Insulin Glargine 30 UNITS/0.3 ML VIAL SC SCH ×2 (08:27→20:23)
[2024-02-06] MEDS: HumaLOG 300 UNITS/3 ML VIAL SC SCH (18:09)
[2024-02-07 05:54] LABS: #Basophils 0.05 10x3/uL (0.0-0.2); %Basophils 0.3 % (0.0-1.0); %Eosinophils 3.7 % (0.0-10.0); %Monocytes 4.9 % (0.0-10.0); %Neutrophils 78.7 % (42.0-75.0); Hematocrit 36.7 % (42.0-52.0); Hemoglobin 11.6 g/dL (14.0-18.0); Mean Corpuscular HGB CONC 31.6 g/dL (32.0-36.0); Mean Corpuscular Volume 75.8 fL (78.0-98.0); Mean Platelet Volume 11.8 fL (7.4-10.4); Platelet Count 276 10x3/uL (130-400); RBC Distribution Width 16.5 % (11.5-14.5); Red Blood Cell (RBC) Count 4.84 mill/uL (4.70-6.10)
[2024-02-07 06:18] LABS: Anion Gap 13 mmol/L (10-20); BUN (Urea Nitrogen) 25 mg/dL (8.4-25.7); Calc. Creatinine Clearance 31 mL/min (70-130); Calcium 8.5 mg/dL (7.8-10.44); Carbon Dioxide 21 mmol/L (23-31); Chloride 108 mmol/L (98-107); Estimated GFR 29; Glucose 361 mg/dL (83-110); Potassium 4.1 mmol/L (3.5-5.1); Sodium 138 mmol/L (136-145)
[2024-02-07] MEDS: Insulin Glargine 30 UNITS/0.3 ML VIAL SC SCH (08:50)
[2024-02-08 09:11] LABS: Anion Gap 11 mmol/L (10-20); BUN (Urea Nitrogen) 21 mg/dL (8.4-25.7); Calc. Creatinine Clearance 37 mL/min (70-130); Calcium 8.2 mg/dL (7.8-10.44); Carbon Dioxide 26 mmol/L (23-31); Chloride 105 mmol/L (98-107); Estimated GFR 35; Glucose 139 mg/dL (83-110); Potassium 3.6 mmol/L (3.5-5.1); Sodium 138 mmol/L (136-145)
[2024-02-08 09:55] LABS: #Basophils 0.03 10x3/uL (0.0-0.2); %Basophils 0.2 % (0.0-1.0); %Eosinophils 2.9 % (0.0-10.0); %Lymphocytes 15.8 % (21.0-51.0); %Monocytes 5.1 % (0.0-10.0); %Neutrophils 75.6 % (42.0-75.0); Hematocrit 34.9 % (42.0-52.0); Hemoglobin 10.8 g/dL (14.0-18.0); Mean Corpuscular HGB CONC 30.9 g/dL (32.0-36.0); Mean Corpuscular Hemoglobin 24.3 pg (27.0-31.0); Mean Corpuscular Volume 78.4 fL (78.0-98.0); Mean Platelet Volume 11.9 fL (7.4-10.4); Platelet Count 299 10x3/uL (130-400); RBC Distribution Width 16.5 % (11.5-14.5); Red Blood Cell (RBC) Count 4.45 mill/uL (4.70-6.10)
[2024-02-08 12:22] VITALS: BMI 25.8
[2024-02-08 16:24] VITALS: TEMP 98.9
[2024-02-08 16:57] VITALS: BP 137/86
[2024-02-08] MEDS ORDERED: Amoxicillin/Potassium Clav 875 MG TAB PO SCH (21:00)
== END 2024-02-08 17:56 | DRG 64 ==
LOC: ERS 12:12 → ERHOLD 14:52 → IMCU/EMU 16:36 → 2SE 01-25 14:54 → IMCU/EMU 01-28 18:31 → 2SE 02-03 21:59
PROVIDERS: ADMIT Family Medicine; ATTEND Family Medicine
PROC: 4A00X4Z Measurement of Central Nervous Electrical Activity, External Approach (ICD-10-PCS; principal; 2024-01-24)
PROC: 4A00X4Z Measurement of Central Nervous Electrical Activity, External Approach (ICD-10-PCS; 2024-01-26)
PROC: 0DH63UZ Insertion of Feeding Device into Stomach, Percutaneous Approach (ICD-10-PCS; 2024-02-03)
DX: I63.9 Cerebral infarction, unspecified (principal); A41.9 Sepsis, unspecified organism; G93.41 Metabolic encephalopathy; I61.9 Nontraumatic intracerebral hemorrhage, unspecified; J69.0 Pneumonitis due to inhalation of food and vomit; N39.0 Urinary tract infection, site not specified; N17.9 Acute kidney failure, unspecified; G81.94 Hemiplegia, unspecified affecting left nondominant side; E87.20 Acidosis, unspecified; E78.5 Hyperlipidemia, unspecified; M19.90 Unspecified osteoarthritis, unspecified site; E11.22 Type 2 diabetes mellitus with diabetic chronic kidney disease; I12.9 Hypertensive chronic kidney disease with stage 1 through stage 4 chronic kidney disease, or unspecified chronic kidney disease; G47.33 Obstructive sleep apnea (adult) (pediatric); F43.10 Post-traumatic stress disorder, unspecified; N40.0 Benign prostatic hyperplasia without lower urinary tract symptoms; G30.9 Alzheimer's disease, unspecified; F02.80 Dementia in other diseases classified elsewhere, unspecified severity, without behavioral disturbance, psychotic disturbance, mood disturbance, and anxiety; N18.30 Chronic kidney disease, stage 3 unspecified; R13.12 Dysphagia, oropharyngeal phase; I48.0 Paroxysmal atrial fibrillation; B96.20 Unspecified Escherichia coli [E. coli] as the cause of diseases classified elsewhere; Z79.899 Other long term (current) drug therapy
CPT/HCPCS: 0042T; 36415; 36416; 70450; 70496; 70498; 70551; 71045; 74018; 74230; 80048; 80053; 80061; 80162; 80306; 80307; 81001; 82140; 82550; 83036; 83690; 83735; 83880; 84484; 85025; 85027; 85610; 85730; 86141; 87040; 87077; 87086; 87186; 93005; 93010; 93306; 94760; 95700; 95711; 95712; 95816; 95819; J0692; J1160; J1815; J1940; J2543; J2704; J3475; J3490; J7030; J7050; J7120; J7999; Q9967; S0028

== ENCOUNTER 2024-02-25 12:16 | Inpatient (IN) | payer MEDICARE, OTHER ==
[2024-02-25] MEDS ORDERED: Cefepime 2 GM VIAL ONE (13:26)
[2024-02-25] MEDS ORDERED: dilTIAZem 125 MG/25 ML SDV ONE (13:26)
[2024-02-25] MEDS ORDERED: Sodium Chloride 0.9% 100 ML ONE (13:26)
[2024-02-25 13:49] LABS: #Basophils 0.06 10x3/uL (0.0-0.2); %Basophils 0.3 % (0.0-1.0); %Eosinophils 0.5 % (0.0-10.0); %Lymphocytes 8.6 % (21.0-51.0); %Monocytes 6.6 % (0.0-10.0); %Neutrophils 83.5 % (42.0-75.0); Hematocrit 40.7 % (42.0-52.0); Hemoglobin 13.1 g/dL (14.0-18.0); Mean Corpuscular HGB CONC 32.2 g/dL (32.0-36.0); Mean Corpuscular Volume 74.7 fL (78.0-98.0); Platelet Count 223 10x3/uL (130-400); RBC Distribution Width 17.2 % (11.5-14.5); Red Blood Cell (RBC) Count 5.45 mill/uL (4.70-6.10)
[2024-02-25 13:57] LABS: INR-International Normal Ratio 1.4; Prothrombin Time 17.6 sec (12.0-14.7)
[2024-02-25 14:01] LABS: ALT (SGPT) 116 U/L (8-55); AST (SGOT) 50 U/L (5-34); Alkaline Phosphatase 87 U/L (40-110); Anion Gap 14 mmol/L (10-20); BUN (Urea Nitrogen) 21 mg/dL (8.4-25.7); Bilirubin, Total 0.4 mg/dL (0.2-1.2); Calc. Creatinine Clearance 0 mL/min (70-130); Calcium 9.4 mg/dL (7.8-10.44); Carbon Dioxide 24 mmol/L (23-31); Chloride 99 mmol/L (98-107); Estimated GFR 41; Globulin 4.8 g/dL (2.4-3.5); Glucose 158 mg/dL (83-110); Lipase 49 U/L (8-78); Magnesium 1.6 mg/dL (1.6-2.6); Potassium 4.5 mmol/L (3.5-5.1); Protein, Total 7.8 g/dL (5.8-8.1); Sodium 132 mmol/L (136-145)
[2024-02-25 14:03] LABS: Troponin I 0.024 ng/mL (< 0.028)
[2024-02-25 14:13] LABS: Bacteria/HPF 4+ HPF (None Seen); Bilirubin Negative (Negative); Blood, Urine 2+ (Negative); CAUTI Indications for Culture Alt mental st,lethar; Clarity Extra Turbid (Clear); Glucose, Urine (Dipstick) Normal (Negative); Ketone, Urine Negative (Negative); Leukocyte 500 Leu/uL (Negative); Nitrite Negative (Negative); Protein, Urine (Dipstick) 30 mg/dL (Neg-Trace); RBC/HPF Greater than 50 HPF (0-3); Specific Gravity, Urine 1.018 (1.002-1.036); Squamous Epithelial None Seen HPF (0-3); Urobilinogen Normal mg/dL (Less than 2); WBC/HPF Greater than 50 HPF (0-3); pH, Urine 5.5 (5.0-9.0)
[2024-02-25 14:15] LABS: Urine Culture Reflex Yes Yes
[2024-02-25] MEDS ORDERED: Ondansetron PF 4 MG/2 ML Vial IVP PRN ×2 (16:30)
[2024-02-25] MEDS ORDERED: Ondansetron ODT 4 MG TAB SL PRN (16:30)
[2024-02-25] MEDS ORDERED: hydrALAZINE 20 MG/ML VIAL SLOW IVP PRN (16:30)
[2024-02-25] MEDS ORDERED: dilTIAZem 125 MG in Sodium Chloride 0.9% 100 ML IVPB SCH (16:30)
[2024-02-25] MEDS ORDERED: Acetaminophen 325 MG TAB PO PRN (16:30)
[2024-02-25] MEDS ORDERED: Ondansetron ODT 4 MG TAB PO PRN (16:30)
[2024-02-25] MEDS ORDERED: Dextrose 5% in Water 1,000 ML IV PRN (16:31)
[2024-02-25] MEDS ORDERED: HumaLOG 300 UNITS/3 ML VIAL SC PRN (16:31)
[2024-02-25] MEDS ORDERED: Dextrose 50% Abboject 50 ML SYRINGE SLOW IVP PRN (16:31)
[2024-02-25] MEDS ORDERED: Glucagon 1 MG/ML KIT IM PRN (16:31)
[2024-02-25] MEDS ORDERED: dilTIAZem 125 MG, Admixture Fee 1 EACH in Sodium Chloride 0.9% 100 ML IVPB SCH (16:45)
[2024-02-25 16:58] LABS: Lactic Acid 1.7 mmol/L (0.5-2.2)
[2024-02-25] MEDS: Lactated Ringer's 1,000 ML IV SCH (19:10)
[2024-02-25] MEDS: Vancomycin (BATCH) 1.75 GM in Premix 1 BAG IVPB SCH (19:10)
[2024-02-25] MEDS: cefTRIAXone\\ROCEPHIN 1 GM in Sodium Chloride 0.9% 100 ML IVPB SCH (20:10)
[2024-02-25] MEDS: Sodium Chloride 0.9% 1,000 ML IV SCH (20:10)
[2024-02-25 20:25] VITALS: BMI 23.8
[2024-02-25] MEDS: Heparin 5,000 UNITS/ML VIAL SC SCH (21:11)
[2024-02-25] MEDS: Atorvastatin Calcium 40 MG TAB PO SCH (21:39)
[2024-02-26 04:17] LABS: #Basophils 0.09 10x3/uL (0.0-0.2); %Basophils 0.4 % (0.0-1.0); %Lymphocytes 13.2 % (21.0-51.0); %Monocytes 8.9 % (0.0-10.0); Hematocrit 33.1 % (42.0-52.0); Hemoglobin 10.7 g/dL (14.0-18.0); Mean Corpuscular HGB CONC 32.3 g/dL (32.0-36.0); Mean Corpuscular Hemoglobin 24.4 pg (27.0-31.0); Mean Corpuscular Volume 75.4 fL (78.0-98.0); Mean Platelet Volume 10.9 fL (7.4-10.4); Platelet Count 192 10x3/uL (130-400); RBC Distribution Width 17.2 % (11.5-14.5); Red Blood Cell (RBC) Count 4.39 mill/uL (4.70-6.10)
[2024-02-26 04:39] LABS: Anion Gap 13 mmol/L (10-20); BUN (Urea Nitrogen) 19 mg/dL (8.4-25.7); Calc. Creatinine Clearance 48 mL/min (70-130); Calcium 8.5 mg/dL (7.8-10.44); Carbon Dioxide 23 mmol/L (23-31); Chloride 105 mmol/L (98-107); Estimated GFR 54; Glucose 60 mg/dL (83-110); Potassium 4.4 mmol/L (3.5-5.1); Sodium 137 mmol/L (136-145)
[2024-02-26] MEDS: Glimepiride 2 MG TAB PO SCH (07:34)
[2024-02-26] MEDS: Losartan 25 MG TAB PO SCH (08:07)
[2024-02-26 08:28] VITALS: BMI 23.8
[2024-02-26] MEDS: Donepezil HCl 5 MG TAB PO SCH (08:49)
[2024-02-27 06:09] LABS: #Basophils 0.04 10x3/uL (0.0-0.2); %Basophils 0.8 % (0.0-1.0); %Eosinophils 3.2 % (0.0-10.0); %Lymphocytes 31.3 % (21.0-51.0); %Monocytes 12.5 % (0.0-10.0); %Neutrophils 50.9 % (42.0-75.0); Hematocrit 33.3 % (42.0-52.0); Hemoglobin 10.7 g/dL (14.0-18.0); Mean Corpuscular HGB CONC 32.1 g/dL (32.0-36.0); Mean Corpuscular Hemoglobin 24.3 pg (27.0-31.0); Mean Corpuscular Volume 75.7 fL (78.0-98.0); Mean Platelet Volume 10.6 fL (7.4-10.4); Platelet Count 156 10x3/uL (130-400); RBC Distribution Width 17.2 % (11.5-14.5)
[2024-02-27 06:29] LABS: Anion Gap 11 mmol/L (10-20); BUN (Urea Nitrogen) 17 mg/dL (8.4-25.7); Calc. Creatinine Clearance 52 mL/min (70-130); Calcium 8.3 mg/dL (7.8-10.44); Carbon Dioxide 18 mmol/L (23-31); Chloride 105 mmol/L (98-107); Estimated GFR 59; Glucose 193 mg/dL (83-110); Iron 26 ug/dL (65-175); Iron Binding Capacity, Total 194 mcg/dL (261-462); Potassium 4.2 mmol/L (3.5-5.1); Sodium 130 mmol/L (136-145)
[2024-02-27] MEDS: Pantoprazole DR 40 MG TAB PO SCH (09:41)
[2024-02-27] MEDS: Ferrous Sulfate 325 MG TAB PO SCH (17:24)
[2024-02-27] MEDS: Acetaminophen 325 MG TAB PO PRN (22:00)
[2024-02-28 07:17] LABS: Hematocrit 34.5 % (42.0-52.0)
[2024-02-28 07:34] LABS: Anion Gap 10 mmol/L (10-20); BUN (Urea Nitrogen) 11 mg/dL (8.4-25.7); Calc. Creatinine Clearance 53 mL/min (70-130); Calcium 8.6 mg/dL (7.8-10.44); Carbon Dioxide 23 mmol/L (23-31); Chloride 110 mmol/L (98-107); Estimated GFR 61; Glucose 89 mg/dL (83-110); Potassium 4.1 mmol/L (3.5-5.1); Sodium 139 mmol/L (136-145)
[2024-02-28] MEDS: Sodium Chloride 0.9% 1,000 ML IV SCH (10:00)
[2024-02-28] MEDS: Magnesium 2 GM/50 ML(in water) 2 GM in Premix 1 BAG IVPB SCH (12:57)
[2024-02-28] MEDS: Vancomycin (BATCH) 1.75 GM in Premix 1 BAG IVPB SCH (12:57)
[2024-02-28] MEDS ORDERED: Vancomycin 1 GM in Premix 1 BAG IVPB SCH (21:00)
[2024-02-28] MEDS: Apixaban 5 MG TAB PO SCH (22:53)
[2024-02-29 04:12] LABS: #Basophils Less than 0.03 10x3/uL (0.0-0.2); %Basophils 0.2 % (0.0-1.0); %Eosinophils 7.1 % (0.0-10.0); %Lymphocytes 31.5 % (21.0-51.0); %Monocytes 11.6 % (0.0-10.0); %Neutrophils 49.4 % (42.0-75.0); Hematocrit 30.6 % (42.0-52.0); Hemoglobin 9.7 g/dL (14.0-18.0); Mean Corpuscular HGB CONC 31.7 g/dL (32.0-36.0); Mean Corpuscular Hemoglobin 24.5 pg (27.0-31.0); Mean Corpuscular Volume 77.3 fL (78.0-98.0); Mean Platelet Volume 10.3 fL (7.4-10.4); Platelet Count 167 10x3/uL (130-400); RBC Distribution Width 17.2 % (11.5-14.5); Red Blood Cell (RBC) Count 3.96 mill/uL (4.70-6.10)
[2024-02-29 04:27] LABS: ALT (SGPT) 41 U/L (8-55); AST (SGOT) 36 U/L (5-34); Albumin 2.3 g/dL (3.4-4.8); Alkaline Phosphatase 60 U/L (40-110); Anion Gap 12 mmol/L (10-20); BUN (Urea Nitrogen) 11 mg/dL (8.4-25.7); Bilirubin, Total 0.2 mg/dL (0.2-1.2); Calc. Creatinine Clearance 60 mL/min (70-130); Calcium 8.1 mg/dL (7.8-10.44); Carbon Dioxide 20 mmol/L (23-31); Chloride 108 mmol/L (98-107); Estimated GFR 70; Globulin 3.8 g/dL (2.4-3.5); Glucose 159 mg/dL (83-110); Magnesium 1.7 mg/dL (1.6-2.6); Potassium 3.5 mmol/L (3.5-5.1); Protein, Total 6.1 g/dL (5.8-8.1); Sodium 136 mmol/L (136-145)
[2024-02-29] MEDS: Magnesium 2 GM/50 ML(in water) 2 GM in Premix 1 BAG IVPB SCH (09:26)
[2024-02-29] MEDS: Pantoprazole 40 MG VIAL IVP SCH (09:28)
[2024-02-29] MEDS: Potassium Bicarbonate/Cit Ac 20 MEQ TAB PER TUBE SCH (09:28)
[2024-02-29] MEDS ORDERED: Vancomycin (BATCH) 1.25 GM in Premix 1 BAG IVPB SCH (13:00)
[2024-02-29] MEDS ORDERED: Vancomycin (BATCH) 1.5 GM in Premix 1 BAG IVPB SCH (13:00)
[2024-02-29] MEDS: HumaLOG 300 UNITS/3 ML VIAL SC PRN (13:13)
[2024-03-01 05:06] LABS: #Basophils 0.03 10x3/uL (0.0-0.2); %Basophils 0.4 % (0.0-1.0); %Eosinophils 7.7 % (0.0-10.0); %Monocytes 10.2 % (0.0-10.0); %Neutrophils 49.4 % (42.0-75.0); Hematocrit 36.7 % (42.0-52.0); Hemoglobin 11.5 g/dL (14.0-18.0); Mean Corpuscular HGB CONC 31.3 g/dL (32.0-36.0); Mean Corpuscular Hemoglobin 24.3 pg (27.0-31.0); Mean Corpuscular Volume 77.4 fL (78.0-98.0); Mean Platelet Volume 10.3 fL (7.4-10.4); Platelet Count 187 10x3/uL (130-400); RBC Distribution Width 17.4 % (11.5-14.5); Red Blood Cell (RBC) Count 4.74 mill/uL (4.70-6.10)
[2024-03-01 05:19] LABS: Anion Gap 14 mmol/L (10-20); BUN (Urea Nitrogen) 11 mg/dL (8.4-25.7); Calc. Creatinine Clearance 56 mL/min (70-130); Calcium 8.9 mg/dL (7.8-10.44); Carbon Dioxide 20 mmol/L (23-31); Chloride 107 mmol/L (98-107); Estimated GFR 64; Glucose 110 mg/dL (83-110); Magnesium 1.8 mg/dL (1.6-2.6); Potassium 3.9 mmol/L (3.5-5.1); Sodium 137 mmol/L (136-145)
[2024-03-01] MEDS: Temazepam 15 MG CAP PO PRN (21:30)
[2024-03-02] MEDS: Pantoprazole DR 40 MG TAB PO SCH (08:57)
[2024-03-02] MEDS: LevoFLOXacin 750 MG TAB PO SCH (08:58)
[2024-03-03] MEDS ORDERED: Metoprolol Tartrate 50 MG TAB PER TUBE SCH ×2 (10:55→21:00)
[2024-03-03] MEDS: Lansoprazole 15 MG/5 ML (BATCHED)UDCUP PER TUBE SCH (14:06)
[2024-03-03] MEDS: Metoprolol Tartrate 50 MG TAB PER TUBE SCH (14:07)
[2024-03-03 15:27] VITALS: BP 126/85; TEMP 98.4
[2024-03-04] MEDS ORDERED: Lansoprazole 15 MG/5 ML (BATCHED)UDCUP PER TUBE SCH (09:00)
== END 2024-03-03 16:30 | disposition home or self-care (01) | DRG 698 ==
LOC: ERS 12:16 → IMCU/EMU 16:14 → 2SE 02-29 06:46
PROVIDERS: ADMIT Internal Medicine; ATTEND Internal Medicine
PROC: 05HY33Z Insertion of Infusion Device into Upper Vein, Percutaneous Approach (ICD-10-PCS; principal; 2024-02-25)
DX: T83.511A Infection and inflammatory reaction due to indwelling urethral catheter, initial encounter (principal); A41.51 Sepsis due to Escherichia coli [E. coli]; G93.41 Metabolic encephalopathy; R65.20 Severe sepsis without septic shock; N17.9 Acute kidney failure, unspecified; E87.1 Hypo-osmolality and hyponatremia; I69.359 Hemiplegia and hemiparesis following cerebral infarction affecting unspecified side; N39.0 Urinary tract infection, site not specified; I48.91 Unspecified atrial fibrillation; N18.30 Chronic kidney disease, stage 3 unspecified; N40.0 Benign prostatic hyperplasia without lower urinary tract symptoms; G30.9 Alzheimer's disease, unspecified; F02.80 Dementia in other diseases classified elsewhere, unspecified severity, without behavioral disturbance, psychotic disturbance, mood disturbance, and anxiety; D63.8 Anemia in other chronic diseases classified elsewhere; E11.22 Type 2 diabetes mellitus with diabetic chronic kidney disease; I12.9 Hypertensive chronic kidney disease with stage 1 through stage 4 chronic kidney disease, or unspecified chronic kidney disease; Y73.1 Therapeutic (nonsurgical) and rehabilitative gastroenterology and urology devices associated with adverse incidents; Y92.89 Other specified places as the place of occurrence of the external cause; Y84.6 Urinary catheterization as the cause of abnormal reaction of the patient, or of later complication, without mention of misadventure at the time of the procedure; Z79.4 Long term (current) use of insulin; Z79.899 Other long term (current) drug therapy; Z79.84 Long term (current) use of oral hypoglycemic drugs
CPT/HCPCS: 36415; 36416; 51701; 70450; 71045; 80048; 80053; 80162; 81001; 82274; 82728; 83540; 83550; 83605; 83690; 83735; 83880; 84484; 85014; 85018; 85025; 85610; 85730; 87040; 87077; 87086; 87149; 87186; 93005; 96361; 96365; 96366; 96367; 97139; C9113; J0692; J0696; J1644; J1815; J3370; J3475; J3490; J7050